=== PATIENT | male | born 1965 | race Caucasian/White ===

== ENCOUNTER 2021-02-14 14:29 | Inpatient (IN) | payer OTHER, SELFPAY ==
--- NOTE | ~2021-02-14 | CT_ITS ---
EXAMINATION: CTA LE LT EXAM DATE: 02/16/2021 11:02 INDICATION: Severe leg pain, erythema LLE . TECHNIQUE: Spiral CTA LE LT was performed following intravenous injection of 150 mL Omnipaque 350. Ma ximum intensity projection 3-D reconstructions of the left lower extremity arteries were created by ari hernandez technologist on dedicated workstation. The dose-length product (DLP) for this examination was 967 .35 mGy-cm. The exposure was tailored according to patient size (auto mA exposure control), and iter ative reconstruction (ASIR) was used as additional dose reduction technique. Correlation is made to CT abdomen pelvis 02/14/2021 FINDINGS: The left common iliac artery confirmed widely patent on CT scan 2 days earlier. Common fem oral artery widely patent. Minimal scattered SFA and popliteal arterial sclerosis without stenosis. T here is 3 vessel runoff to the left foot. There are left inguinal and pelvic lymph nodes with large fatty gabby, but enhancing peripheral parenc hyma. These are most likely reactive. Mild fat stranding in the left inguinal region also likely mild inflammation. There is edema along the calf and foot suspected, clinical correlation for possible ce llulitis. There is no abscess or pneumatosis, no evidence of necrotizing fasciitis. Incidental left-s ided scrotal left. IMPRESSION: 1. Minimal scattered arterial sclerosis with normal three-vessel runoff to foot. 2. Left calf and foot subcutaneous edema. Reactive left pelvic, inguinal lymphadenopathy. Reviewed, dictated and finalized at location A. IMPRESSION: 1. Minimal scattered arterial sclerosis with normal three-vessel runoff to travis t. 2. Left calf and foot subcutaneous edema. Reactive left pelvic, inguinal lymph adenopathy.
--- NOTE | ~2021-02-14 | US_ITS ---
EXAMINATION: US venous doppler LE EXAM DATE: 02/15/2021 13:13 INDICATION: Left leg swelling, redness. TECHNIQUE: Multiple grayscale, color flow and Doppler images of the lower extremity deep venous syste ms bilaterally were obtained and reviewed. There is no prior study for comparison. FINDINGS: Right side: The right common femoral, femoral and profunda veins demonstrate normal color flow, respi ratory variation, augmentation and compressibility. Compressibility, color flow confirmed within the right popliteal, posterior tibial, peroneal, and greater saphenous veins. Left side: The left common femoral, femoral and profunda veins demonstrate normal color flow, respira tory variation, augmentation and compressibility. Compressibility, color flow confirmed within the l eft popliteal, posterior tibial, peroneal, and greater saphenous veins. Left inguinal lymph node ravi suring 2 x 3 cm, with large fatty hilum likely reactive. IMPRESSION: 1. No lower extremity deep venous thrombosis bilaterally. Reviewed, dictated and finalized at location A.
--- NOTE | ~2021-02-14 | CT_ITS ---
EXAMINATION: CT abdomen pelvis w con DATE: 02/14/2021 16:37 INDICATION: Abdominal pain TECHNIQUE: Computed tomography (CT) of the abdomen and pelvis was performed with 100 mL Omnipaque-350 intravenous contrast. Automated exposure control and iterative reconstruction technique were employe d. The dose-length product was 1344.44 mGy-cm. COMPARISON: None FINDINGS: Mild dependent atelectasis in the bilateral lower lobes. Heart size is normal. Atherosclerotic denis ry artery calcification and/or stenting. No pericardial or pleural effusion. Liver, spleen, pancreas, left kidney and bilateral adrenal glands are normal. 2.2 cm right renal cyst. Very small region of m ild focal thickening of the gallbladder wall which measures up to 3 mm in thickness and extends over a 9 x 5 mm region. Bowels including the appendix are normal. Bladder is normal. No free intraperitone al gas or fluid. No pathologically enlarged abdominal or pelvic lymphadenopathy. Severe bilateral fac et osteoarthritis at L5-S1. Otherwise mild scattered degenerative skeletal changes. IMPRESSION: 1. No acute intra-abdominal/pelvic process. 2. Nonspecific small focal region of mild gallbladder wall thickening. This could represent focal reg ion of adenomyomatosis, sessile polyp, less likely malignancy or artifactual appearance resulting fro m a small pericholecystic vessel. Consider 3-6 month follow-up pre and postcontrast MRI. Reviewed, dictated and finalized at location A. IMPRESSION: 1. No acute intra-abdominal/pelvic process. 2. Nonspecific small focal region of mild gallbladder wall thickening. This cou ld represent focal region of adenomyomatosis, sessile polyp, less likely malign korey or artifactual appearance resulting from a small pericholecystic vessel. C onsider 3-6 month follow-up pre and postcontrast MRI.
[2021-02-14 14:33] VITALS: BP 151/75; PULSE 130; RESP 18; TEMP 36.9; O2SAT 94
[2021-02-14 14:56] LABS: Basophils Percent Auto 0.1 % (0.2-1.2); Hematocrit 42.4 % (42.0-52.0); Hemoglobin 15.2 g/dL (14.0-18.0); Immature Granulocyte Absolute 0.16 K/mm3 (0.00-0.031); Immature Granulocyte Percent A 0.7 % (0-0.5); Lymphocytes Absolute Auto 0.93 K/mm3 (0.9-3.2); Lymphocytes Percent Auto 4.1 % (18.3-44.2); Mean Corpuscular HGB Conc 35.8 g/dl (32-36); Mean Corpuscular Hemoglobin 31.3 pg (26-34); Mean Corpuscular Volume 87.2 fl (80-100); Mean Platelet Volume 9.7 fl (7.4-10.4); Monocytes Percent Auto 4.2 % (2.6-8.5); Neutrophils Absolute Auto 20.3 K/mm3 (1.3-6.7); Neutrophils Percent Auto 90.9 % (45.5-73.1); Platelet Count Result 233 k/mm3 (150-375); Red Blood Count 4.86 M/mm3 (4.6-6.20); Red Cell Distribution Width 12.7 % (11.5-14.5); White Blood Count 22.4 K/mm3 (4.5-10.0)
[2021-02-14 15:05] LABS: Anion Gap 15 mmol/L (8-16); Blood Urea Nitrogen 8 mg/dL (9-20); Calcium 9.7 mg/dL (8.4-10.2); Carbon Dioxide 22 mmol/L (22-30); Chloride 96 mmol/L (98-107); Estimated CRCL calculation 116 ml/min; Estimated Glomerular Filt Rate > 60; Glucose 335 mg/dL (75-110); Potassium 3.8 mmol/L (3.4-5.0); Sodium 133 mmol/L (137-145)
[2021-02-14 15:22] LABS: Add Urine Microscopic? YES; Appearance Urine Clear (Clear); Bilirubin Urine Negative (Negative); Blood Urine 1+ (Negative); Color Urine Yellow (Yellow); Glucose Urine UA 3+ mg/dL (Negative); Ketones Urine 2+ mg/dL (Negative); Leukocyte Esterase Ur Negative LEU/UL (Negative); Nitrate Urine Negative (Negative); Protein Urine 2+ mg/dL (Negative); RBC Urine 0-2 /hpf (0-2); Urobilinogen Urine Negative mg/dL (<2.0); WBC Urine 0-3 /hpf
[2021-02-14 15:27] LABS: Specific Grav Ur 1.035 (1.001-1.035)
[2021-02-14 15:54] VITALS: BP 164/76; PULSE 100; RESP 18; TEMP 36.7; O2SAT 99
--- NOTE | 2021-02-14 16:08 | ED.ABDPAIN ---
HPI - Abdominal Pain General Chief Complaint: Abdominal Pain Stated Complaint: l groin and back pain Time Seen by Provider: 02/14/21 16:07 History of Present Illness HPI narrative: Left groin pain for the past 3 weeks. Worsening in severity. Now radiating throughout the abdomen and associated with nausea and vomiting. This is a new symptom. No fever. No previous surgery. Related Data Home Medications Medication Instructions Recorded Confirmed Benadryl Allergy 50 mg HS 02/14/21 02/14/21 atorvastatin 80 mg PO DAILY 02/14/21 02/14/21 losartan 50 mg PO DAILY 02/14/21 02/14/21 metformin 500 mg PO BID 02/14/21 02/14/21 metoprolol tartrate 100 mg PO DAILY 02/14/21 02/14/21 Lantus Solostar U-100 Insulin 52 unit SUBCUT DAILY 02/15/21 02/15/21 Novolog Flexpen U-100 Insulin 32 unit SUBCUT BID 02/15/21 02/15/21 Victoza 2-Sha 1.8 mg SUBCUT DAILY 02/15/21 02/15/21 Allergies Allergy/AdvReac Type Severity Reaction Status Date / Time No Known Allergies Allergy Verified 02/14/21 18:47 Review of Systems Review of Systems: All systems reviewed & are unremarkable except as noted in HPI and below Constitutional: Constitutional: Denies fever(s) Eyes: Eyes: Reports no additional eye complaints Cardiovascular: Cardiovascular: Denies chest pain Respiratory: Respiratory: Denies dyspnea Gastrointestinal: Gastrointestinal: Reports abdominal pain, Denies diarrhea, Reports nausea and Reports vomiting Genitourinary: Genitourinary: Denies hematuria and Denies dysuria Neurologic: Reports dizziness PMFSH Past Medical History Medical History Coronary artery disease Hiccups Hyperlipidemia Hypertension Obstructive sleep apnea on CPAP Type 2 diabetes mellitus Surgical History Surgical History History of cardiac catheterization Stent x1. History of laparoscopic adjustable gastric banding With subsequent removal secondary to erosion. Family History Family History Father Family history of heart disease in male family member before age 55 Mother Chronic obstructive pulmonary disease Social History Social History Social History: The patient is and lives with his in [place]. He has 3 children. 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 Former smoker, quit about 23 years ago. He drinks 2 beers a week. No illicit substance use. He designates his , Smita, as his surrogate decision maker and he wishes to be a full code. Smoking status: Former smoker Alcohol intake: current Drinks per week: 2 Substance use: current Substance use type: marijuana Last use: 02/12/21 Spiritual care concerns: No Exam Const: General: no acute distress, alert and ill appearing Orientation/consciousness: patient oriented x3 HENMT: Head: normal to inspection Resp: Effort & Inspection: normal respiratory effort Auscultation: clear to auscultation bilaterally Cardio: Rate: tachycardic Rhythm: regular rhythm Heart sounds: no murmurs GI: Inspection: non-distended GI Palp: Yes Soft to palpation and Yes Tenderness to palpation present (GI) (diffuse, most severe over left inguinal ligamant) Skin: Other: Erythema, induration, swelling of left lower leg Neuro: General: patient oriented x3, No moves all extremities and CN's II-XI intact bilaterally Gait exam (Neuro): Normal gait present Extrem: General: edema left Course Vital Signs Vital signs: Vital Signs Temperature 36.9 C 02/14/21 14:33 Pulse Rate 130 H 02/14/21 14:33 Respiratory Rate 18 02/14/21 14:33 Blood Pressure 151/75 H 02/14/21 14:33 Pulse Oximetry 94 02/14/21 14:33 Temperature 36.6 C 02/19/21 14:00 Pulse Rate 95 02/19/21 16:00 Respiratory Rate 18 02/19/21 14:00 Blood Pressure 107
[2021-02-14] MEDS: SODIUM CHLORIDE 0.9% IV 1,000 ML 999 ML IV CONT ×2 (16:09→21:31)
[2021-02-14] MEDS: MORPHINE SULFATE (*CRX) 4 MG/ML INJ IV PUSH (16:50)
[2021-02-14 17:16] LABS: Lactic Acid Reflex 2.1 mmol/L (0.7-2.1)
[2021-02-14 17:17] LABS: Alanine Aminotransferase 19 U/L (4-50); Albumin Level 4.5 g/dL (3.5-5.1); Alkaline Phosphatase 75 U/L (38-126); Aspartate Amino Transferase 32 U/L (17-59); Bilirubin,Total 0.8 mg/dL (0.2-1.3); Lipase 21 U/L (23-300)
[2021-02-14] MEDS: LACTATED RINGERS 1,000 ML 125 ML IV CONT (18:40)
[2021-02-14 18:47] VITALS: BP 135/95; PULSE 123; RESP 18; TEMP 37.6; O2SAT 97
[2021-02-14 18:55] VITALS: BP 135/95; PULSE 123; TEMP 37.6; O2SAT 97
--- NOTE | 2021-02-14 18:55 | PC.NURSE ---
This patient, Roland Vergara, was admitted to [facility] Surg Room 314-01. Patient/family oriented to hospital policies and general routines including ID bracelet, bed and alarms, visiting hours, pain management, procedures, bathroom and other care routines, personal items, smoking policy, room service/diet, and visiting hours. Information on how to activate the Rapid Response Team has been discussed. Patient/Family are encouraged to report perceived risks to care and to ask questions if they do not understand what they are told or what they should do.
--- NOTE | 2021-02-14 20:00 | PM.IMHP ---
H&P: HPI History of Present Illness Date/Time: 02/14/21 20:00 Chief Complaint: Left groin pain. Narrative: This is a 55-year-old male with history of coronary artery disease status post stent x1, type 2 diabetes mellitus, hypertension, hyperlipidemia, obstructive sleep apnea presented to the emergency department earlier today via private vehicle from home for evaluation of left groin pain. For nearly 3 weeks he has had an aching discomfort in the left groin that has not been significant enough for him to require analgesics. Yesterday he developed systemic symptoms including subjective fever, nausea, and vomiting and when he was not better today he decided to come in as he thought perhaps he had a kidney stone. A CT of the abdomen and pelvis was was essentially unremarkable aside from an area of fat stranding around a left inguinal lymph node. Subsequently it was discovered that he had a large erythematous patch on his left lower leg that has been present for about a week although the patient never really paid much attention. He has no history of cellulitis and no known history of MRSA. No dysuria or hematuria. He denies flank pain and abdominal pain. Last episode of emesis was approximately 3 hours ago. He has not had diarrhea. He has not noticed any significant swelling in the leg. No recent travel or history of venous thromboembolism. Review of Systems Review of Systems: Narrative: Twelve systems were reviewed with pertinent positives and negatives as per HPI. No recent cold or flu symptoms. He denies exposure to those positive for COVID-19. No chest pain or shortness of breath. On occasion he will feel his heart racing or beating irregularly. He has no history of cardiac dysrhythmia. No syncope or near syncope. He denies pleuritic pain. No orthopnea, PND, or lower extremity edema. He believes his diabetes is well controlled. No blurry vision, polydipsia, or polyuria. Compliant with CPAP at nighttime. Except as documented, all other systems were reviewed and are negative. [facility] Past Medical History Medical History (Updated 02/14/21 @ 20:58 by Keyla Gottlieb PA-C) Coronary artery disease Hyperlipidemia Hypertension Obstructive sleep apnea on CPAP Type 2 diabetes mellitus Surgical History Surgical History (Updated 02/14/21 @ 20:46 by Keyla Gottlieb PA-C) History of cardiac catheterization Stent x1. History of laparoscopic adjustable gastric banding With subsequent removal secondary to erosion. Family History Family History (Updated 02/14/21 @ 20:47 by Keyla Gottlieb PA-C) Father Family history of heart disease in male family member before age 55 Mother Chronic obstructive pulmonary disease Social History Social History (Updated 02/14/21 @ 20:49 by Keyla Gottlieb PA-C) Social History: The patient is and lives with his in [place]. He has 3 children. 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 Former smoker, quit about 23 years ago. He drinks 2 beers a week. No illicit substance use. He designates his , Smita, as his surrogate decision maker and he wishes to be a full code. Meds Home Medications and Allergies Home Medications Medication Instructions Recorded Confirmed Type Benadryl Allergy 50 mg HS 02/14/21 02/14/21 History atorvastatin 80 mg PO DAILY 02/14/21 02/14/21 History losartan 50 mg PO DAILY 02/14/21 02/14/21 History metformin 500 mg PO BID 02/14/21 02/14/21 History metoprolol tartrate 100 mg PO DAILY 02/14/21 02/14/21 History Allergies Allergy/AdvReac Type Severity Reaction Status Date / Time No Known Allergies Allergy Verified 02/14/21 18:47 Vital Signs Vital Signs - 24 hr 02/14/21 14:33 02/14/21 15:54 02/14/21 18:47 Temperature 98.5 F 98.0 F 99.6 F Pulse Rate 130 H 100 123 H Respiratory Rate 18 18 18 Blood Pressure 151/75 H 164/76 H 135/95 H Pulse Oximetry 94 99 97 02/14/21 18:55 Temperature 99.6 F Pulse
[2021-02-14 20:05] LABS: Reflex Lactic Acid Yes or No Add Lactic
--- NOTE | 2021-02-14 20:38 | ECG_ITS ---
Measurements Intervals [place] Rate: 107 P: 48 ID: [id number] QRS: 18 QRSD: 94 T: 83 QT: 354 QTc: 474 Interpretive Statements SINUS TACHYCARDIA BORDERLINE ST-T WAVE ABNORMALITY- HIGH LATERAL LEADS ABNORMAL ECG Electronically Signed On 02-15-2021 7:23:50 CDT by Gomez Barbosa D.O.
[2021-02-14 21:20] VITALS: BMI 38.7
[2021-02-14 21:37] LABS: Lactic Acid 1.8 mmol/L (0.7-2.1)
[2021-02-14 21:42] LABS: Hemoglobin A1C 9.9 % (<5.7)
[2021-02-14 21:47] LABS: Glucose Point of Care 320 mg/dl (65-105)
[2021-02-14 21:50] LABS: Anion Gap 14 mmol/L (8-16); Blood Urea Nitrogen 8 mg/dL (9-20); Calcium 9.5 mg/dL (8.4-10.2); Carbon Dioxide 25 mmol/L (22-30); Chloride 94 mmol/L (98-107); Estimated CRCL calculation 115 ml/min; Estimated Glomerular Filt Rate > 60; Glucose 323 mg/dL (75-110); Potassium 3.7 mmol/L (3.4-5.0); Sodium 133 mmol/L (137-145)
[2021-02-14 21:52] LABS: CRP > 9.0 mg/dL (<1.0); Magnesium 1.9 mg/dL (1.6-2.3)
[2021-02-14 21:54] LABS: Beta-Hydroxybutyrate/Acetoacetate 0.91 mmol/L (0.02-0.27)
[2021-02-14 22:00] VITALS: BP 144/82; PULSE 114; RESP 20; TEMP 37.2; O2SAT 96
[2021-02-14 22:06] VITALS: PULSE 114
[2021-02-14 22:53] LABS: Thyroid Stimulating Hormone Reflex 0.963 uIU/mL (0.465-4.68)
[2021-02-14] MEDS: INSULIN ASPART (*BKC) 100 UNITS/ML SUB-Q (22:56)
[2021-02-14] MEDS: diphenhydrAMINE HCl CAP 25 MG CAPSULE 50 MG BY MOUTH (22:58)
[2021-02-15] VITALS (11 sets, daily range): BP systolic 122–134; BP diastolic 64–75; PULSE 99–115; RESP 18–20; TEMP 36.9–37.1; O2SAT 96–99
[2021-02-15] MEDS: LACTATED RINGERS 1,000 ML 125 ML IV CONT ×2 (05:50→10:53)
[2021-02-15 06:40] LABS: Hematocrit 35.8 % (42.0-52.0); Hemoglobin 12.7 g/dL (14.0-18.0); Mean Corpuscular HGB Conc 35.5 g/dl (32-36); Mean Corpuscular Hemoglobin 30.8 pg (26-34); Mean Corpuscular Volume 86.9 fl (80-100); Mean Platelet Volume 9.6 fl (7.4-10.4); Platelet Count Result 170 k/mm3 (150-375); Red Blood Count 4.12 M/mm3 (4.6-6.20); Red Cell Distribution Width 12.7 % (11.5-14.5); White Blood Count 14.7 K/mm3 (4.5-10.0)
[2021-02-15 08:22] LABS: Glucose Point of Care 307 mg/dl (65-105)
[2021-02-15] MEDS: INSULIN ASPART (*BKC) 100 UNITS/ML SUB-Q ×3 (08:27→18:51)
[2021-02-15] MEDS: ENOXAPARIN 40 MG/0.4 ML SYRINGE SUB-Q (08:28)
[2021-02-15 09:24] LABS: Anion Gap 9 mmol/L (8-16); Blood Urea Nitrogen 8 mg/dL (9-20); Calcium 8.5 mg/dL (8.4-10.2); Carbon Dioxide 24 mmol/L (22-30); Chloride 99 mmol/L (98-107); Estimated CRCL calculation 132 ml/min; Estimated Glomerular Filt Rate > 60; Glucose 240 mg/dL (75-110); Potassium 3.7 mmol/L (3.4-5.0); Sodium 132 mmol/L (137-145)
[2021-02-15] MEDS: ATORVASTATIN 40 MG TABLET 80 MG PO (10:42)
[2021-02-15] MEDS: LOSARTAN POTASSIUM 50 MG TABLET PO (10:42)
[2021-02-15 12:25] LABS: Glucose Point of Care 325 mg/dl (65-105)
--- NOTE | 2021-02-15 12:35 | PM.IMPN ---
Progress Note: A&P Assessment and Plan (1) Sepsis: Code(s): A41.9 - Sepsis, unspecified organism Status: Acute Assessment and Plan: The patient presents today with left groin pain, found to have inflammation around the left inguinal lymph node, likely reactive due to the discovery of left lower extremity cellulitis. He has been started on imipenem and vancomycin per antibiotic stewardship recommendations. He technically meets criteria for sepsis with leukocytosis and tachycardia in the setting of infection however qSOFA is 0. Lactic acid level is obtained and is within normal limits. Blood cultures have been ordered and pending at this time. (2) Left leg cellulitis: Code(s): L03.116 - Cellulitis of left lower limb Status: Acute Assessment and Plan: IV antibiotics, also with left leg swelling will get Venous Dopplers to rule out DVT. (3) Dehydration: Code(s): E86.0 - Dehydration Status: Acute Assessment and Plan: He has been started on IV fluids as he appeared dehydrated on exam, but looks improved today. Continue light IV fluid hydration. (4) Type 2 diabetes mellitus with hyperglycemia: Code(s): E11.65 - Type 2 diabetes mellitus with hyperglycemia Status: Acute Assessment and Plan: Patient is on Lantus, Novolog, Metformin and Victoza with HgbA1c 9.9% which he states is down from 11 where he was 1 month ago. He is working on diet changes and weight loss. Hold Metformin, adjust insulin to prevent hypoglycemia while hospitalized on DM diet. Continue monitoring Accu-Cheks. Continue sliding scale insulin. Hypoglycemic protocol. (5) Hypertension: Code(s): I10 - Essential (primary) hypertension Status: Acute Assessment and Plan: Blood pressures were reviewed, this morning 134/71.Continue monitoring BP. (6) Hyperlipidemia: Code(s): E78.5 - Hyperlipidemia, unspecified Status: Acute Assessment and Plan: Continue statin. (7) Obstructive sleep apnea on CPAP: Code(s): G47.33 - Obstructive sleep apnea (adult) (pediatric); Z99.89 - Dependence on other enabling machines and devices Status: Acute Assessment and Plan: Patient may use CPAP from home. Additional Plan Time Spent With Patient Time with patient: 25 - 35 minutes Subjective Date/time seen: 02/15/21 12:35 Interval history: Date of Service 02/15/21: The patient still reports some pain to his left groin, but states its improved since arrival. He has worse pain with trying to get out of bed and with walking around. This has been going on for 1-2 months. He has not been very active because of it. He reported some left lower extremity swelling, then did not notice the Erythema to his leg until just prior to arrival. He does report some calf pain. Denies any more fevers, chills, chest pain, SOB, cough, nausea ,vomiting, abdominal pain, or any other symptoms at this time. Review of Systems Review of Systems: All systems reviewed & are unremarkable except as noted in HPI and below Exam Narrative: Exam Narrative: General: 55-year-old man laying flat in bed with CPAP machine on resting. Appears comfortable. In no acute distress. Skin: See Lower extremities. No jaundice or cyanosis. Good skin turgor. Neck: Full range of motion. Supple. Respiratory: Lungs are clear to auscultation bilaterally. No wheezing, rales or rhonchi. No bony chest wall tenderness. Cardiovascular: The heart has a regular rate and rhythm without murmur. Lower extremities: Slight left lower extremity edema, nonpitting. Blanchable erythema noted to left lower extremity, along with some petechial erythema from upper gómez, to his ankle. Calf pain to palpation left greater than right. No lower extremity edema on right. Distal pulses are easily palpated. No calf tenderness to palpation. Gastrointestinal: The abdomen is soft, nontender and
[2021-02-15] MEDS: METOPROLOL TARTRATE 50 MG TAB 100 MG PO (13:44)
--- NOTE | 2021-02-15 14:14 | PHAR ---
The patient's home meds of Novolog Flexpen, Victoza pen, and Lantus solostar pen all sent to pharmacy to verify. Patient to use Novolog and [facility] supplies so that med scanning can be done. The Victoza is not ordered.
[2021-02-15 17:34] LABS: Glucose Point of Care 260 mg/dl (65-105)
[2021-02-15] MEDS: INSULIN ASPART (*BKC) 100 UNITS/ML 20 UNITS SUB-Q (18:52)
[2021-02-15] MEDS: MORPHINE SULFATE (*CRX) 4 MG/ML INJ IV PUSH (19:08)
[2021-02-15] MEDS: INSULIN GLARGINE (*BKC) 100 UNITS/ML 42 UNITS SUB-Q (21:09)
[2021-02-15] MEDS: diphenhydrAMINE HCl CAP 25 MG CAPSULE 50 MG BY MOUTH (21:15)
[2021-02-15 21:31] LABS: Glucose Point of Care 296 mg/dl (65-105)
[2021-02-16] VITALS (10 sets, daily range): BP systolic 119–131; BP diastolic 64–74; PULSE 88–110; RESP 16–20; TEMP 36.3–36.9; O2SAT 97
[2021-02-16] MEDS: LACTATED RINGERS 1,000 ML 75 ML IV CONT (04:33)
[2021-02-16] MEDS: MORPHINE SULFATE (*CRX) 4 MG/ML INJ IV PUSH ×6 (04:38→23:19)
[2021-02-16 06:11] LABS: Basophils Percent Auto 0.3 % (0.2-1.2); Eosinophils Absolute Auto 0.1 K/mm3 (0-0.3); Eosinophils Percent Auto 0.4 % (0-4.4); Hematocrit 34.8 % (42.0-52.0); Hemoglobin 11.9 g/dL (14.0-18.0); Immature Granulocyte Absolute 0.05 K/mm3 (0.00-0.031); Immature Granulocyte Percent A 0.4 % (0-0.5); Lymphocytes Absolute Auto 1.46 K/mm3 (0.9-3.2); Lymphocytes Percent Auto 13.1 % (18.3-44.2); Mean Corpuscular HGB Conc 34.2 g/dl (32-36); Mean Corpuscular Hemoglobin 30.7 pg (26-34); Mean Corpuscular Volume 89.9 fl (80-100); Mean Platelet Volume 9.5 fl (7.4-10.4); Monocytes Absolute Auto 0.8 K/mm3 (0.1-0.6); Neutrophils Absolute Auto 8.8 K/mm3 (1.3-6.7); Neutrophils Percent Auto 78.8 % (45.5-73.1); Platelet Count Result 160 k/mm3 (150-375); Red Blood Count 3.87 M/mm3 (4.6-6.20); Red Cell Distribution Width 12.7 % (11.5-14.5); White Blood Count 11.2 K/mm3 (4.5-10.0)
[2021-02-16 06:35] LABS: Anion Gap 8 mmol/L (8-16); Blood Urea Nitrogen 8 mg/dL (9-20); Calcium 8.3 mg/dL (8.4-10.2); Carbon Dioxide 27 mmol/L (22-30); Chloride 100 mmol/L (98-107); Estimated CRCL calculation 132 ml/min; Estimated Glomerular Filt Rate > 60; Glucose 130 mg/dL (75-110); Potassium 3.3 mmol/L (3.4-5.0); Sodium 135 mmol/L (137-145)
[2021-02-16 06:42] LABS: CRP 21.5 mg/dL (<1.0)
[2021-02-16 06:51] LABS: Vancomycin Trough 6.4 ug/mL (10.0-20.0)
[2021-02-16] MEDS: POTASSIUM CHLORIDE 20 MEQ TABLET 40 MEQ PO (06:51)
[2021-02-16 07:19] LABS: Magnesium 2.1 mg/dL (1.6-2.3)
[2021-02-16 08:08] LABS: Glucose Point of Care 206 mg/dl (65-105)
[2021-02-16] MEDS: INSULIN ASPART (*BKC) 100 UNITS/ML SUB-Q ×3 (08:59→17:14)
[2021-02-16] MEDS: INSULIN ASPART (*BKC) 100 UNITS/ML 20 UNITS SUB-Q ×2 (09:00→17:14)
[2021-02-16] MEDS: ENOXAPARIN 40 MG/0.4 ML SYRINGE SUB-Q (09:00)
[2021-02-16] MEDS: ATORVASTATIN 40 MG TABLET 80 MG PO (09:00)
[2021-02-16] MEDS: METOPROLOL TARTRATE 50 MG TAB 100 MG PO (09:01)
[2021-02-16] MEDS: LOSARTAN POTASSIUM 50 MG TABLET PO (09:01)
--- NOTE | 2021-02-16 10:09 | PM.IMPN ---
Progress Note: A&P Assessment and Plan (1) Left leg pain: Code(s): M79.605 - Pain in left leg Status: Acute Assessment and Plan: Reporting increased left leg pain since last evening. Will obtain CTA Left leg to rule out nec fas, abscess, clot or any other acute abnormality. (2) Sepsis: Code(s): A41.9 - Sepsis, unspecified organism Status: Acute Assessment and Plan: The patient presents today with left groin pain, found to have inflammation around the left inguinal lymph node, likely reactive due to the discovery of left lower extremity cellulitis. He has been started on imipenem and vancomycin per antibiotic stewardship recommendations. He meets criteria for sepsis on arrival with leukocytosis and tachycardia in the setting of infection however qSOFA is 0. Lactic acid level is obtained and is within normal limits. Blood cultures show no growth at that time (3) Left leg cellulitis: Code(s): L03.116 - Cellulitis of left lower limb Status: Acute Assessment and Plan: IV antibiotics for cellulitis. Venous Dopplers negative. Continue IV antibiotics and monitoring (4) Dehydration: Code(s): E86.0 - Dehydration Status: Acute Assessment and Plan: He has been started on IV fluids as he appeared dehydrated on exam, but looks improved today. Euvolemic. D/c IV fluids. (5) Type 2 diabetes mellitus with hyperglycemia: Code(s): E11.65 - Type 2 diabetes mellitus with hyperglycemia Status: Acute Assessment and Plan: Patient is on Lantus, Novolog, Metformin and Victoza with HgbA1c 9.9% which he states is down from 11 where he was 1 month ago. He is working on diet changes and weight loss. Hold Metformin, adjust insulin to prevent hypoglycemia while hospitalized on DM diet. Continue monitoring Accu-Cheks. Continue sliding scale insulin. Hypoglycemic protocol. (6) Hypertension: Code(s): I10 - Essential (primary) hypertension Status: Acute Assessment and Plan: Blood pressures were reviewed, this morning 119/64.Continue monitoring BP. (7) Hyperlipidemia: Code(s): E78.5 - Hyperlipidemia, unspecified Status: Acute Assessment and Plan: Continue statin. (8) Obstructive sleep apnea on CPAP: Code(s): G47.33 - Obstructive sleep apnea (adult) (pediatric); Z99.89 - Dependence on other enabling machines and devices Status: Acute Assessment and Plan: Patient may use CPAP from home. Additional Plan Time Spent With Patient Time with patient: 25 - 35 minutes Subjective Date/time seen: 02/16/21 10:09 Interval history: Date of Service 02/16/21: The patients left groin pain has resolved. He reports worsening left leg pain, redness. His left lower leg is so tender than even the blanket sitting on his leg is painful. Still reports some swelling. Denies any more fevers, chills, chest pain, SOB, cough, nausea ,vomiting, abdominal pain, or any other symptoms at this time. Review of Systems Review of Systems: All systems reviewed & are unremarkable except as noted in HPI and below Exam Narrative: Exam Narrative: General: 55-year-old man laying flat in bed with CPAP machine on resting. Appears comfortable. In no acute distress. Skin: See Lower extremities. No jaundice or cyanosis. Good skin turgor. Neck: Full range of motion. Supple. Respiratory: Lungs are clear to auscultation bilaterally. No wheezing, rales or rhonchi. No bony chest wall tenderness. Cardiovascular: The heart has a regular rate and rhythm without murmur. Lower extremities:Increased blanchable erythema to left lower extremity, along with some petechial erythema from upper gómez, to his ankle. Nonpitting swelling. TTP to left lower extremity. No lower extremity edema on right. Distal pulses are easily palpated. No calf tenderness to palpation. Gastrointestinal: The abdomen is soft, n
[2021-02-16 12:39] LABS: Glucose Point of Care 218 mg/dl (65-105)
[2021-02-16] MEDS: ACETAMINOPHEN 325 MG TABLET 650 MG PO (14:12)
[2021-02-16] MEDS: HYDROcodone/acetaminophen (*CRX) 5-325 MG TABLET 1 TAB PO ×2 (15:54→20:51)
[2021-02-16 17:11] LABS: Glucose Point of Care 232 mg/dl (65-105)
[2021-02-16] MEDS: diphenhydrAMINE HCl CAP 25 MG CAPSULE 50 MG BY MOUTH (22:02)
[2021-02-16] MEDS: INSULIN GLARGINE (*BKC) 100 UNITS/ML 42 UNITS SUB-Q (22:02)
[2021-02-16 22:15] LABS: Glucose Point of Care 207 mg/dl (65-105)
[2021-02-17] VITALS (11 sets, daily range): BP systolic 106–127; BP diastolic 67–76; PULSE 82–110; RESP 16–20; TEMP 36.2–36.9; O2SAT 96–100
[2021-02-17] MEDS: MORPHINE SULFATE (*CRX) 4 MG/ML INJ IV PUSH ×3 (03:37→09:09)
[2021-02-17] MEDS: HYDROcodone/acetaminophen (*CRX) 5-325 MG TABLET 1 TAB PO (06:06)
[2021-02-17 06:34] LABS: Basophils Absolute Auto 0.1 K/mm3 (0.0-0.1); Basophils Percent Auto 0.4 % (0.2-1.2); Eosinophils Absolute Auto 0.1 K/mm3 (0-0.3); Eosinophils Percent Auto 0.9 % (0-4.4); Hematocrit 35.4 % (42.0-52.0); Hemoglobin 12.3 g/dL (14.0-18.0); Immature Granulocyte Absolute 0.08 K/mm3 (0.00-0.031); Immature Granulocyte Percent A 0.6 % (0-0.5); Lymphocytes Absolute Auto 1.95 K/mm3 (0.9-3.2); Lymphocytes Percent Auto 15.5 % (18.3-44.2); Mean Corpuscular HGB Conc 34.7 g/dl (32-36); Mean Corpuscular Hemoglobin 30.1 pg (26-34); Mean Corpuscular Volume 86.6 fl (80-100); Mean Platelet Volume 9.7 fl (7.4-10.4); Monocytes Percent Auto 7.8 % (2.6-8.5); Neutrophils Absolute Auto 9.4 K/mm3 (1.3-6.7); Neutrophils Percent Auto 74.8 % (45.5-73.1); Platelet Count Result 201 k/mm3 (150-375); Red Blood Count 4.09 M/mm3 (4.6-6.20); Red Cell Distribution Width 12.6 % (11.5-14.5); White Blood Count 12.6 K/mm3 (4.5-10.0)
[2021-02-17 06:59] LABS: Anion Gap 8 mmol/L (8-16); Blood Urea Nitrogen 7 mg/dL (9-20); Calcium 8.5 mg/dL (8.4-10.2); Carbon Dioxide 28 mmol/L (22-30); Chloride 99 mmol/L (98-107); Estimated CRCL calculation 132 ml/min; Estimated Glomerular Filt Rate > 60; Glucose 175 mg/dL (75-110); Potassium 3.5 mmol/L (3.4-5.0); Sodium 135 mmol/L (137-145)
[2021-02-17 07:22] LABS: Vancomycin Trough 10.5 ug/mL (10.0-20.0)
[2021-02-17 08:15] LABS: Glucose Point of Care 219 mg/dl (65-105)
[2021-02-17] MEDS: INSULIN ASPART (*BKC) 100 UNITS/ML 20 UNITS SUB-Q (08:25)
[2021-02-17] MEDS: METOPROLOL TARTRATE 50 MG TAB 100 MG PO ×2 (08:28→21:04)
[2021-02-17] MEDS: ENOXAPARIN 40 MG/0.4 ML SYRINGE SUB-Q (08:29)
[2021-02-17] MEDS: LOSARTAN POTASSIUM 50 MG TABLET PO (08:29)
[2021-02-17] MEDS: ATORVASTATIN 40 MG TABLET 80 MG PO (08:29)
--- NOTE | 2021-02-17 09:41 | PM.IMPN ---
Progress Note: A&P Assessment and Plan (1) Left leg pain: Code(s): M79.605 - Pain in left leg Status: Acute Assessment and Plan: Improved leg pains today. Venous Dopplers negative. CTA Left leg showed Minimal scattered arterial sclerosis with normal three-vessel runoff to foot. Left calf and foot subcutaneous edema. Reactive left pelvic, inguinal lymphadenopathy. Plan is to keep left leg elevated to decrease swelling, which I believe is what is causing most of the pain. He does report sharp shooting pains, will start Gabapentin 100 mg TID. PRN medications for pain- Tylenol, Tramadol vs Morphine IV Appears better today. Continue monitoring (2) Sepsis: Code(s): A41.9 - Sepsis, unspecified organism Status: Acute Assessment and Plan: The patient presented with left groin pain, found to have inflammation around the left inguinal lymph node, likely reactive due to the discovery of left lower extremity cellulitis. He has been started on imipenem and vancomycin per antibiotic stewardship recommendations. He meets criteria for sepsis on arrival with leukocytosis and tachycardia in the setting of infection however qSOFA is 0. Lactic acid level is obtained and is within normal limits. Vitals stable. No longer septic Blood cultures show no growth at that time Continue monitoring (3) Left leg cellulitis: Code(s): L03.116 - Cellulitis of left lower limb Status: Acute Assessment and Plan: IV antibiotics for cellulitis. Leukocytosis improving, CRP improving slowly. Leg overall appears stable, believe most of the infections blanchable erythems is being covered by petechial erythema that is nonblanchable. Otherwise based on the patients symptoms over all it seems to be improving slowly. Continue IV antibiotics and monitoring (4) Dehydration: Code(s): E86.0 - Dehydration Status: Acute Assessment and Plan: He has been started on IV fluids as he appeared dehydrated on exam, but looks improved today. Euvolemic. D/c IV fluids. (5) Type 2 diabetes mellitus with hyperglycemia: Code(s): E11.65 - Type 2 diabetes mellitus with hyperglycemia Status: Acute Assessment and Plan: Patient is on Lantus, Novolog, Metformin and Victoza with HgbA1c 9.9% which he states is down from 11 where he was 1 month ago. He is working on diet changes and weight loss. Hold Metformin, adjust insulin to prevent hypoglycemia while hospitalized on DM diet. Glucoses in the 175-200's. Continue monitoring Accu-Cheks. Continue sliding scale insulin. Hypoglycemic protocol. (6) Hypertension: Code(s): I10 - Essential (primary) hypertension Status: Acute Assessment and Plan: Blood pressures were reviewed, this morning 127/75. Stable.Continue monitoring BP. (7) Hyperlipidemia: Code(s): E78.5 - Hyperlipidemia, unspecified Status: Acute Assessment and Plan: Continue statin. (8) Obstructive sleep apnea on CPAP: Code(s): G47.33 - Obstructive sleep apnea (adult) (pediatric); Z99.89 - Dependence on other enabling machines and devices Status: Acute Assessment and Plan: Patient may use CPAP from home. Additional Plan Time Spent With Patient Time with patient: 25 - 35 minutes Subjective Date/time seen: 02/17/21 09:41 Interval history: Date of Service 02/17/21: The patients left groin pain has resolved. He states he overall feels a lot better than yesterday. Feels better than he has in a while. Still having severe nerve pains shooting from his ankle up his leg intermittently, otherwise his calf pains have resolved. Denies any more fevers, chills, chest pain, SOB, cough, nausea ,vomiting, abdominal pain, or any other symptoms at this time. Review of Systems Review of Systems: All systems reviewed & are unremarkable except as noted in HPI and below Exam Narrative:
[2021-02-17] MEDS: ACETAMINOPHEN 325 MG TABLET 650 MG PO ×2 (11:02→17:43)
[2021-02-17] MEDS: traMADol HCL (*CRX) 50 MG TABLET PO ×3 (11:02→23:32)
[2021-02-17] MEDS: PSYLLIUM POWDER PACKET 1 PACKET PO (11:02)
[2021-02-17] MEDS: GABAPENTIN 100 MG CAPSULE PO ×3 (11:02→16:32)
[2021-02-17] MEDS: DOCUSATE SODIUM 100 MG CAPSULE PO ×2 (11:02→21:07)
[2021-02-17 11:32] LABS: Glucose Point of Care 184 mg/dl (65-105)
[2021-02-17 11:33] LABS: Glucose Point of Care 216 mg/dl (65-105)
[2021-02-17] MEDS: INSULIN ASPART (*BKC) 100 UNITS/ML SUB-Q ×2 (12:19→17:45)
[2021-02-17] MEDS: MORPHINE SULFATE (*CRX) 4 MG/ML INJ 2 MG IV PUSH ×2 (12:19→15:17)
[2021-02-17 16:59] LABS: Glucose Point of Care 250 mg/dl (65-105)
[2021-02-17] MEDS: INSULIN ASPART (*BKC) 100 UNITS/ML 24 UNITS SUB-Q (17:46)
[2021-02-17] MEDS: INSULIN GLARGINE (*BKC) 100 UNITS/ML 47 UNITS SUB-Q (21:00)
[2021-02-17] MEDS: diphenhydrAMINE HCl CAP 25 MG CAPSULE 50 MG BY MOUTH (21:30)
[2021-02-18] VITALS (12 sets, daily range): BP systolic 135–143; BP diastolic 64–72; PULSE 74–109; RESP 18–22; TEMP 35.9–37.3; O2SAT 97–99
--- NOTE | 2021-02-18 | ECHO_ITS ---
Patient Info Name: Roland Vergara Age: 55 years : 1965 Gender: Male Ht: 65 in Wt: 232 lbs BSA: 2.25 m2 HR: 105 bpm BP: 135 / 64 mmHg Technical Quality: Fair Exam Date: 02/18/2021 1:20 PM Exam Location: [facility] Patient Status: Inpatient Admit Date: 02/14/2021 Staff Ordering Physician: Derrick Silver Ditch Worker: Radha Valles RDCS Attending Provider: Jenna Bustos PA-C Referring Physician: Nadeem MUSE; Exam Type: CA echo dop color flow w con Study Info Indications R60.9 - Edema, unspecified Complete two-dimensional, color flow and Doppler transthoracic echocardiogram is performed with contrast to opacify the left ventricle and to improve the deliniation of the left ventricle endocardial borders. Contrast/Agitated Saline Contrast/Ag. Saline: Definity Amount: 2.00 ml Administered By: Vitaliy Cordova RN Existing IV Access: Yes IV Access Condition: patent with no signs of infiltration Summary 1. Left ventricular chamber dimension is normal. 2. Left ventricular ejection fraction is normal, estimated at 6065 %. 3. The mitral valve has thickened leaflets. 4. There is trace mitral valve regurgitation. 5. There is trace tricuspid valve regurgitation. 6. Mild pulmonary HTN (PASP 39 mmHg). 7. Grade I diastolic dysfunction of the left ventricle (impaired relaxation pattern). 8. There is trace aortic valve regurgitation. Left Ventricle Left ventricular chamber dimension is normal. Left ventricular ejection fraction is normal, estimated at 6065 %. Grade I diastolic dysfunction of the left ventricle (impaired relaxation pattern). Right Ventricle Right ventricle Empty are normal. Left Atria Left atrial chamber dimension is normal. Right Atria Right atrial chamber dimension is normal. Aortic Valve Aortic valve is not well visualized. There is trace aortic valve regurgitation. Mitral Valve The mitral valve has thickened leaflets. There is trace mitral valve regurgitation. Tricuspid Valve The tricuspid valve leaflets are normal. There is trace tricuspid valve regurgitation. Mild pulmonary HTN (PASP 39 mmHg). Pericardium/Pleural Pericardium is normal in appearance with no evidence for significant pericardial effusion. Report Signatures
[2021-02-18 03:00] LABS: Glucose Point of Care 206 mg/dl (65-105)
[2021-02-18 07:25] LABS: Glucose Point of Care 172 mg/dl (65-105)
[2021-02-18 07:44] LABS: Basophils Percent Auto 0.3 % (0.2-1.2); Eosinophils Absolute Auto 0.2 K/mm3 (0-0.3); Eosinophils Percent Auto 1.2 % (0-4.4); Hematocrit 34.6 % (42.0-52.0); Hemoglobin 12.1 g/dL (14.0-18.0); Immature Granulocyte Absolute 0.15 K/mm3 (0.00-0.031); Immature Granulocyte Percent A 1.2 % (0-0.5); Lymphocytes Absolute Auto 1.78 K/mm3 (0.9-3.2); Lymphocytes Percent Auto 14.3 % (18.3-44.2); Mean Corpuscular Hemoglobin 30.8 pg (26-34); Mean Platelet Volume 9.3 fl (7.4-10.4); Monocytes Absolute Auto 0.7 K/mm3 (0.1-0.6); Monocytes Percent Auto 5.7 % (2.6-8.5); Neutrophils Absolute Auto 9.6 K/mm3 (1.3-6.7); Neutrophils Percent Auto 77.3 % (45.5-73.1); Platelet Count Result 214 k/mm3 (150-375); Red Blood Count 3.93 M/mm3 (4.6-6.20); Red Cell Distribution Width 12.5 % (11.5-14.5); White Blood Count 12.5 K/mm3 (4.5-10.0)
[2021-02-18 08:04] LABS: Anion Gap 9 mmol/L (8-16); Blood Urea Nitrogen 7 mg/dL (9-20); Calcium 8.8 mg/dL (8.4-10.2); Carbon Dioxide 29 mmol/L (22-30); Chloride 98 mmol/L (98-107); Estimated CRCL calculation 132 ml/min; Estimated Glomerular Filt Rate > 60; Glucose 210 mg/dL (75-110); Potassium 3.5 mmol/L (3.4-5.0); Sodium 136 mmol/L (137-145)
[2021-02-18] MEDS: INSULIN ASPART (*BKC) 100 UNITS/ML 24 UNITS SUB-Q ×2 (08:09→17:10)
[2021-02-18] MEDS: LOSARTAN POTASSIUM 50 MG TABLET PO (08:14)
[2021-02-18] MEDS: GABAPENTIN 100 MG CAPSULE PO ×3 (08:14→17:10)
[2021-02-18] MEDS: DOCUSATE SODIUM 100 MG CAPSULE PO ×2 (08:14→20:30)
[2021-02-18] MEDS: MORPHINE SULFATE (*CRX) 4 MG/ML INJ 2 MG IV PUSH ×2 (08:14→18:43)
[2021-02-18] MEDS: METOPROLOL TARTRATE 50 MG TAB 100 MG PO ×2 (08:14→20:30)
[2021-02-18] MEDS: ENOXAPARIN 40 MG/0.4 ML SYRINGE SUB-Q (08:14)
[2021-02-18] MEDS: ATORVASTATIN 40 MG TABLET 80 MG PO (08:14)
[2021-02-18] MEDS: PSYLLIUM POWDER PACKET 1 PACKET PO (08:14)
[2021-02-18 08:32] LABS: Vancomycin Trough 18.3 ug/mL (10.0-20.0)
--- NOTE | 2021-02-18 11:22 | P.PNIM_ITS ---
Progress Note: A&P Assessment and Plan (1) Left leg pain: Code(s): M79.605 - Pain in left leg Status: Acute Assessment and Plan: * Venous Dopplers negative. * CTA Left leg showed Minimal scattered arterial sclerosis with normal three- vessel runoff to foot. Left calf and foot subcutaneous edema. Reactive left pelvic, inguinal lymphadenopathy. * Plan is to keep left leg elevated to decrease swelling * He does report sharp shooting pains, Gabapentin 100 mg TID is working well for him * PRN medications for pain- Tylenol, Tramadol vs Morphine IV * Appears better today. * Redness continues to migrate (2) Sepsis: Qualifiers: Sepsis type: sepsis due to unspecified organism Sepsis acute organ dys function status: unspecified Qualified Code(s): A41.9 - Sepsis, unspecified organism Code(s): A41.9 - Sepsis, unspecified organism Status: Acute Assessment and Plan: * Presented with left groin pain, found to have inflammation around the left inguinal lymph node, likely reactive due to the discovery of left lower extremity cellulitis. * Criteria for sepsis on arrival with leukocytosis and tachycardia in the setting of infection however qSOFA is 0. * Lactic acid level within normal limits. * Imipenem 500mg Q6hr, vancomycin 2000mg IV Q8hr * Vitals stable. No longer septic * Blood cultures show no growth at that time * WBC trending down at 12.5 * Lab in the am * Continue to trend labs (3) Left leg cellulitis: Code(s): L03.116 - Cellulitis of left lower limb Status: Acute Assessment and Plan: * Reddening and swelling to the left lower extremity * IV antibiotics for cellulitis. * Leukocytosis improving * CRP improving slowly. * Trend labs * Labs in the am (4) Hiccups: Code(s): R06.6 - Hiccough Status: Acute Assessment and Plan: * Patient has continuous hiccups * EKG did some boraderline ST-T wave abnormalities * Last stress test in 2016 was normal * Will work up for cardiac abnormality * Unrelieved * Troponin ordered pending * Echo ordered pending * Cardiac arrhythmias noted by patient and panel monitor. (5) Dehydration: Code(s): E86.0 - Dehydration Status: Acute Assessment and Plan: * Problem resolved * He has been started on IV fluids as he appeared dehydrated on exam, * Improved * Euvolemic * D/c IV fluids. 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 * He is working on diet changes and weight loss. * Hold Metformin, adjust insulin to prevent hypoglycemia while hospitalized on DM diet. * Glucoses in the 170-250s * Monitoring Accu-Checks * Continue sliding scale insulin * Hypoglycemic protocol * Adjust medication as needed (7) Hypertension: Qualifiers: Hypertension type: unspecified Qualified Code(s): I10 - Essential (primary) hypertension Code(s): I10 - Essential (randolph
--- NOTE | 2021-02-18 11:22 | PM.IMPN ---
Progress Note: A&P Assessment and Plan (1) Left leg pain: Code(s): M79.605 - Pain in left leg Status: Acute Assessment and Plan: Venous Dopplers negative. CTA Left leg showed Minimal scattered arterial sclerosis with normal three-vessel runoff to foot. Left calf and foot subcutaneous edema. Reactive left pelvic, inguinal lymphadenopathy. Plan is to keep left leg elevated to decrease swelling He does report sharp shooting pains, Gabapentin 100 mg TID is working well for him PRN medications for pain- Tylenol, Tramadol vs Morphine IV Appears better today. Redness continues to migrate (2) Sepsis: Qualifiers: Sepsis type: sepsis due to unspecified organism Sepsis acute organ dysfunction status: unspecified Qualified Code(s): A41.9 - Sepsis, unspecified organism Code(s): A41.9 - Sepsis, unspecified organism Status: Acute Assessment and Plan: Presented with left groin pain, found to have inflammation around the left inguinal lymph node, likely reactive due to the discovery of left lower extremity cellulitis. Criteria for sepsis on arrival with leukocytosis and tachycardia in the setting of infection however qSOFA is 0. Lactic acid level within normal limits. Imipenem 500mg Q6hr, vancomycin 2000mg IV Q8hr Vitals stable. No longer septic Blood cultures show no growth at that time WBC trending down at 12.5 Lab in the am Continue to trend labs (3) Left leg cellulitis: Code(s): L03.116 - Cellulitis of left lower limb Status: Acute Assessment and Plan: Reddening and swelling to the left lower extremity IV antibiotics for cellulitis. Leukocytosis improving CRP improving slowly. Trend labs Labs in the am (4) Hiccups: Code(s): R06.6 - Hiccough Status: Acute Assessment and Plan: Patient has continuous hiccups EKG did some boraderline ST-T wave abnormalities Last stress test in 2016 was normal Will work up for cardiac abnormality Unrelieved Troponin ordered pending Echo ordered pending Cardiac arrhythmias noted by patient and traffic monitor specialist. (5) Dehydration: Code(s): E86.0 - Dehydration Status: Acute Assessment and Plan: Problem resolved He has been started on IV fluids as he appeared dehydrated on exam, Improved Euvolemic D/c IV fluids. 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 He is working on diet changes and weight loss. Hold Metformin, adjust insulin to prevent hypoglycemia while hospitalized on DM diet. Glucoses in the 170-250s Monitoring Accu-Checks Continue sliding scale insulin Hypoglycemic protocol Adjust medication as needed (7) Hypertension: Qualifiers: Hypertension type: unspecified Qualified Code(s): I10 - Essential (primary) hypertension Code(s): I10 - Essential (primary) hypertension Status: Acute Assessment and Plan: Blood pressures were reviewed this morning 127/75. Stable Trend BP Losartan 50mg PO daily, Metoprolol 100mg PO Q12hr Adjust medications as needed (8) Hyperlipidemia: Qualifiers: Hyperlipidemia type: unspecified Qualified Code(s): E78.5 - Hyperlipidemia, unspecified Code(s): E78.5 - Hyperlipidemia, unspecified Status: Acute Assessment and Plan: Continue Atorvastatin 80mg Po Daily (9) Obstructive sleep
[2021-02-18 11:30] LABS: Glucose Point of Care 213 mg/dl (65-105)
[2021-02-18] MEDS: INSULIN ASPART (*BKC) 100 UNITS/ML SUB-Q ×2 (11:44→17:10)
[2021-02-18 12:29] LABS: Troponin I 0.191 ng/mL (0.000-0.034)
[2021-02-18] MEDS: POTASSIUM CHLORIDE 20 MEQ TABLET 40 MEQ PO (13:14)
[2021-02-18] MEDS: PERFLUTREN LIPID MICROSPHERES 1.5 ML VIAL DILUTED TO 10 ML TOTAL VOLUME IV PUSH (13:56)
[2021-02-18] MEDS: traMADol HCL (*CRX) 50 MG TABLET PO ×2 (14:51→20:30)
[2021-02-18 15:18] LABS: Troponin I 0.176 ng/mL (0.000-0.034)
[2021-02-18 17:01] LABS: Glucose Point of Care 249 mg/dl (65-105)
--- NOTE | 2021-02-18 17:27 | PM.CNCAR ---
Assessment and Plan Assessment and plan (1) Sepsis: Qualifiers: Sepsis acute organ dysfunction status: unspecified Sepsis type: sepsis due to unspecified organism Qualified Code(s): A41.9 - Sepsis, unspecified organism Code(s): A41.9 - Sepsis, unspecified organism Status: Acute (2) Hiccups: Code(s): R06.6 - Hiccough Status: Acute (3) Left leg pain: Code(s): M79.605 - Pain in left leg Status: Acute (4) Left leg cellulitis: Code(s): L03.116 - Cellulitis of left lower limb Status: Acute (5) Hyperlipidemia: Qualifiers: Hyperlipidemia type: unspecified Qualified Code(s): E78.5 - Hyperlipidemia, unspecified Code(s): E78.5 - Hyperlipidemia, unspecified Status: Acute (6) Hypertension: Qualifiers: Hypertension type: unspecified Qualified Code(s): I10 - Essential (primary) hypertension Code(s): I10 - Essential (primary) hypertension Status: Acute (7) Type 2 diabetes mellitus: Code(s): E11.9 - Type 2 diabetes mellitus without complications Status: Acute (8) Troponin level elevated: Code(s): R77.8 - Other specified abnormalities of plasma proteins Status: Acute Assessment and Plan: Pt was found to have elevated troponin in setting of sepsis due to cellulitis no acute EKG changes ECHO showed normal LV systolic function (LVEF 60-65%) and diastolic dysfunction will cont meds he may benefit from further cardiac evaluation on outpatient basis when medically stable. (9) Obstructive sleep apnea on CPAP: Code(s): G47.33 - Obstructive sleep apnea (adult) (pediatric); Z99.89 - Dependence on other enabling machines and devices Status: Acute Assessment and Plan: Thank you for consult. Burt ding. History of Present Illness History of Present Illness Consult date/time: 02/18/21 HPI: 55 y/o WM with PMH of DM, CAD s/p Mi, s/p PCI, HTN, HLD presented to [facility] due to LE edema and L groin pain on 02/14/21. Pt noticed LE edema for few weeks. No SOB, CP or palpitations. He had N/V, fever before current admission. Has hx of KS about 10 yrs ago and stated that had stent placed in mid RCA. [facility] States that had ECHO and stress test before which were negative. No hx of CHF. pt was seen and examined, chart was reviewed, case d/w pt's family. Reason For Visit: Cellulitis, DM Review of Systems Review of Systems: All systems reviewed & are unremarkable except as noted in HPI and below Constitutional: Constitutional: Reports as per HPI Eyes: Eyes: Reports as per HPI ENT: Reports system reviewed and no additional complaints, except as documented and Reports as per HPI Cardiovascular: Cardiovascular: Reports as per HPI Respiratory: Respiratory: Reports as per HPI Gastrointestinal: Gastrointestinal: Reports as per HPI Genitourinary: Genitourinary: Reports as per HPI Musculoskeletal: Musculoskeletal: Reports as per HPI [facility] Past Medical History Medical History (Updated 02/18/21 @ 17:37 by Taiwo Youssef MD) Coronary artery disease Hiccups Hyperlipidemia Hypertension Obstructive sleep apnea on CPAP Type 2 diabetes mellitus Surgical History Surgical History (Updated 02/14/21 @ 20:46 by Keyla Gottlieb PA-C) History of cardiac catheterization Stent x1. History of laparoscopic adjustable gastric banding With subsequent removal secondary to erosion. Family History Family History Father Family history of heart disease in male family member before age 55 Mother Chronic obstructive pulmonary disease Social History Social History (Updated 02/14/21 @ 20:49 by Keyla Gottlieb PA-C) Social History: The patient is and lives with his in [place]. He has 3 children. 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 Former smoker, quit about 23 year
[2021-02-18] MEDS: diphenhydrAMINE HCl CAP 25 MG CAPSULE 50 MG BY MOUTH (20:31)
[2021-02-18] MEDS: INSULIN GLARGINE (*BKC) 100 UNITS/ML 47 UNITS SUB-Q (20:31)
[2021-02-18] MEDS: ASPIRIN 81 MG ENTERIC TABLET PO (20:31)
[2021-02-18 22:03] LABS: Troponin I 0.173 ng/mL (0.000-0.034)
[2021-02-19] VITALS (12 sets, daily range): BP systolic 104–133; BP diastolic 50–71; PULSE 82–96; RESP 16–18; TEMP 36.6–37.1; O2SAT 97–98
[2021-02-19 01:12] LABS: Glucose Point of Care 171 mg/dl (65-105)
[2021-02-19] MEDS: MORPHINE SULFATE (*CRX) 4 MG/ML INJ 2 MG IV PUSH ×2 (03:05→06:33)
[2021-02-19 06:02] LABS: Basophils Percent Auto 0.3 % (0.2-1.2); Eosinophils Absolute Auto 0.2 K/mm3 (0-0.3); Hematocrit 33.4 % (42.0-52.0); Hemoglobin 11.2 g/dL (14.0-18.0); Immature Granulocyte Absolute 0.25 K/mm3 (0.00-0.031); Immature Granulocyte Percent A 2.1 % (0-0.5); Lymphocytes Absolute Auto 2.47 K/mm3 (0.9-3.2); Lymphocytes Percent Auto 20.9 % (18.3-44.2); Mean Corpuscular HGB Conc 33.5 g/dl (32-36); Mean Corpuscular Hemoglobin 30.7 pg (26-34); Mean Corpuscular Volume 91.5 fl (80-100); Mean Platelet Volume 9.4 fl (7.4-10.4); Monocytes Absolute Auto 0.9 K/mm3 (0.1-0.6); Monocytes Percent Auto 7.2 % (2.6-8.5); Neutrophils Percent Auto 67.5 % (45.5-73.1); Platelet Count Result 230 k/mm3 (150-375); Red Blood Count 3.65 M/mm3 (4.6-6.20); Red Cell Distribution Width 12.5 % (11.5-14.5); White Blood Count 11.8 K/mm3 (4.5-10.0)
[2021-02-19 06:18] LABS: Alanine Aminotransferase 28 U/L (4-50); Albumin Level 3.2 g/dL (3.5-5.1); Alkaline Phosphatase 78 U/L (38-126); Anion Gap 5 mmol/L (8-16); Aspartate Amino Transferase 28 U/L (17-59); Bilirubin,Total 0.3 mg/dL (0.2-1.3); Blood Urea Nitrogen 7 mg/dL (9-20); Calcium 8.5 mg/dL (8.4-10.2); Carbon Dioxide 29 mmol/L (22-30); Chloride 101 mmol/L (98-107); Estimated CRCL calculation 115 ml/min; Estimated Glomerular Filt Rate > 60; Glucose 190 mg/dL (75-110); Potassium 4.2 mmol/L (3.4-5.0); Sodium 135 mmol/L (137-145)
[2021-02-19 06:23] LABS: NT Pro B Type Natriuretic Pept 343 pg/mL (5-100)
[2021-02-19] MEDS: FUROSEMIDE INJ 40 MG/4 ML VIAL 20 MG IV PUSH (07:19)
[2021-02-19 07:22] LABS: Glucose Point of Care 173 mg/dl (65-105)
[2021-02-19] MEDS: INSULIN ASPART (*BKC) 100 UNITS/ML 24 UNITS SUB-Q ×2 (08:09→17:01)
[2021-02-19] MEDS: LOSARTAN POTASSIUM 50 MG TABLET PO (08:12)
[2021-02-19] MEDS: ATORVASTATIN 40 MG TABLET 80 MG PO (08:12)
[2021-02-19] MEDS: ASPIRIN 81 MG ENTERIC TABLET PO (08:12)
[2021-02-19] MEDS: GABAPENTIN 100 MG CAPSULE PO ×3 (08:12→17:00)
[2021-02-19] MEDS: DOCUSATE SODIUM 100 MG CAPSULE PO ×2 (08:12→20:49)
[2021-02-19] MEDS: ENOXAPARIN 40 MG/0.4 ML SYRINGE SUB-Q (08:12)
[2021-02-19] MEDS: PSYLLIUM POWDER PACKET 1 PACKET PO (08:12)
[2021-02-19] MEDS: METOPROLOL TARTRATE 50 MG TAB 100 MG PO ×2 (08:13→20:49)
--- NOTE | 2021-02-19 08:29 | PM.PNCARD ---
Progress Note: A&P Assessment and Plan (1) Troponin level elevated: Code(s): R77.8 - Other specified abnormalities of plasma proteins Status: Acute Assessment and Plan: 55 y/o with h/o HTN, DM, obesity, CATHERINE on CPAP, h/o of ID s/p RCA PCI who is seen in cardiac consultation for elevated troponin He was found to have borderline elevated troponin that peaked at 0.1 in setting of sepsis due to cellulitis no acute EKG changes No chest pain ECHO showed normal LV systolic function (LVEF 60-65%) and diastolic dysfunction Continue ASA and high intensity statin No plan for any further inpatient cardiac eval. He will need to follow up with his map maker at the ID and consider nuc stress test once medical stable (2) Left leg cellulitis: Code(s): L03.116 - Cellulitis of left lower limb Status: Acute (3) Hyperlipidemia: Qualifiers: Hyperlipidemia type: unspecified Qualified Code(s): E78.5 - Hyperlipidemia, unspecified Code(s): E78.5 - Hyperlipidemia, unspecified Status: Acute (4) Hypertension: Qualifiers: Hypertension type: unspecified Qualified Code(s): I10 - Essential (primary) hypertension Code(s): I10 - Essential (primary) hypertension Status: Acute (5) Type 2 diabetes mellitus: Code(s): E11.9 - Type 2 diabetes mellitus without complications Status: Acute (6) Obstructive sleep apnea on CPAP: Code(s): G47.33 - Obstructive sleep apnea (adult) (pediatric); Z99.89 - Dependence on other enabling machines and devices Status: Acute Assessment and Plan: Thank you for consult. Burt ding. Subjective Date/time seen: 02/19/21 08:29 No overnight events. Still with hiccups. Denies chest pain or dyspnea. Leg cellulitis is about the same Review of Systems Review of Systems: All systems reviewed & are unremarkable except as noted in HPI and below Constitutional: Constitutional: Reports as per HPI Eyes: Eyes: Reports as per HPI ENT: Reports system reviewed and no additional complaints, except as documented and Reports as per HPI Cardiovascular: Cardiovascular: Reports as per HPI Respiratory: Respiratory: Reports as per HPI Gastrointestinal: Gastrointestinal: Reports as per HPI Genitourinary: Genitourinary: Reports as per HPI Musculoskeletal: Musculoskeletal: Reports as per HPI Exam Const: General: alert and awake; No acute distress HENMT: Head: normal to inspection and atraumatic Ears: hearing grossly normal bilaterally Face and sinus: normal facial exam Eyes: General: appearance normal, both eyes and all related structures Pupils: Equal, round and reactive pupils present EOM: EOMs intact bilaterally Neck: Neck: normal visual inspection and no JVD Chest: Chest palpation & inspection: normal inspection of the chest Resp: Effort & Inspection: normal respiratory effort and no respiratory distress Auscultation: clear to auscultation bilaterally Cardio: Jugular venous distension: no JVD Rate: regular rate Heart sounds: S1 normal heart sound present, S2 normal heart sound present and no murmurs GI: Inspection: normal to inspection Auscultation: normal bowel sounds Skin: General skin exam: normal color Neuro: Cranial nerves: Yes Equal, round and reactive pupils present Extrem: General: pedal edema (mild calli with reddness) Objective Data Vital Signs Vital Signs: Vital Signs - 24 hr 02/18/21 12:00 02/18/21 14:00 02/18/21 16:00 Temperature 37.2 C Pulse Rate 88 101 H 98 Respiratory Rate 22 H Blood Pressure 143/72 H Pulse Oximetry 99 02/18/21 20:00 02/18/21 20:30 02/18/21 21:12 Temperature 37.3 C Pulse Rate 96 87 101 H Respiratory Rate 18 18 Blood Pressure 135/68 Pulse Oximetry 97 97 02/18/21 23:20 02/19/21 00:00 02/19/21 04:00 Temperature Pulse Rate 96 96 92 Respiratory Rate Blood Pressure Pulse Oximetry 97 97 02/19/21 06:00 02/19/21 08:13
[2021-02-19] MEDS: KETOROLAC 30 MG/ML VIAL (*BKC) IV PUSH ×2 (10:50→20:49)
[2021-02-19] MEDS: INSULIN ASPART (*BKC) 100 UNITS/ML SUB-Q (11:50)
[2021-02-19 11:56] LABS: Glucose Point of Care 307 mg/dl (65-105)
--- NOTE | 2021-02-19 13:15 | PM.IMPN ---
Progress Note: A&P Assessment and Plan (1) Left leg pain: Code(s): M79.605 - Pain in left leg Status: Acute Assessment and Plan: Venous Dopplers negative. CTA Left leg showed Minimal scattered arterial sclerosis with normal three-vessel runoff to foot. Left calf and foot subcutaneous edema. Reactive left pelvic, inguinal lymphadenopathy. Plan is to keep left leg elevated to decrease swelling He does report sharp shooting pains, Gabapentin 100 mg TID is working well for him PRN medications for pain- Tylenol, morphine 1mg iv Q6hr and toradol 30mg IV q6hr Appears better today. Redness is decreasing (2) Sepsis: Code(s): A41.9 - Sepsis, unspecified organism Status: Acute Assessment and Plan: Presented with left groin pain, found to have inflammation around the left inguinal lymph node, likely reactive due to the discovery of left lower extremity cellulitis. Criteria for sepsis on arrival with leukocytosis and tachycardia in the setting of infection however qSOFA is 0. Lactic acid level within normal limits. Imipenem 500mg Q6hr, vancomycin 2000mg IV Q8hr Vitals stable. No longer septic Blood cultures show no growth at that time WBC trending down at 118 Lab in the am Continue to trend labs (3) Left leg cellulitis: Code(s): L03.116 - Cellulitis of left lower limb Status: Acute Assessment and Plan: Reddening and swelling to the left lower extremity IV antibiotics for cellulitis. Leukocytosis improving CRP improving slowly. Trend labs Labs in the am (4) Hiccups: Code(s): R06.6 - Hiccough Status: Acute Assessment and Plan: Patient has continuous hiccups EKG did some borderline ST-T wave abnormalities Last stress test in 2016 was normal Will work up for cardiac abnormality Unrelieved Troponin peaked at 0.191 Echo was unremarkable Cardiac arrhythmias noted by patient and environmental monitoring specialist. (5) Dehydration: Code(s): E86.0 - Dehydration Status: Acute Assessment and Plan: Problem resolved He has been started on IV fluids as he appeared dehydrated on exam, Improved Euvolemic D/c IV fluids. 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 He is working on diet changes and weight loss. Hold Metformin, adjust insulin to prevent hypoglycemia while hospitalized on DM diet. Glucoses in the 170-250s Monitoring Accu-Checks Continue sliding scale insulin Hypoglycemic protocol Adjust medication as needed (7) Hypertension: Qualifiers: Hypertension type: unspecified Qualified Code(s): I10 - Essential (primary) hypertension Code(s): I10 - Essential (primary) hypertension Status: Acute Assessment and Plan: Blood pressures were reviewed this morning 127/75. Stable Trend BP Losartan 50mg PO daily, Metoprolol 100mg PO Q12hr Adjust medications as needed (8) Hyperlipidemia: Qualifiers: Hyperlipidemia type: unspecified Qualified Code(s): E78.5 - Hyperlipidemia, unspecified Code(s): E78.5 - Hyperlipidemia, unspecified Status: Acute Assessment and Plan: Continue Atorvastatin 80mg Po Daily (9) Obstructive sleep apnea on CPAP: Code(s): G47.33 - Obstructive sleep apnea (adult) (pediatric); Z99.89 - Dependence on other enabling machines and devices Status: Acute
--- NOTE | 2021-02-19 13:15 | P.PNIM_ITS ---
Progress Note: A&P Assessment and Plan (1) Left leg pain: Code(s): M79.605 - Pain in left leg Status: Acute Assessment and Plan: * Venous Dopplers negative. * CTA Left leg showed Minimal scattered arterial sclerosis with normal three- vessel runoff to foot. Left calf and foot subcutaneous edema. Reactive left pelvic, inguinal lymphadenopathy. * Plan is to keep left leg elevated to decrease swelling * He does report sharp shooting pains, Gabapentin 100 mg TID is working well for him * PRN medications for pain- Tylenol, morphine 1mg iv Q6hr and toradol 30mg IV q6hr * Appears better today. * Redness is decreasing (2) Sepsis: Code(s): A41.9 - Sepsis, unspecified organism Status: Acute Assessment and Plan: * Presented with left groin pain, found to have inflammation around the left inguinal lymph node, likely reactive due to the discovery of left lower extremity cellulitis. * Criteria for sepsis on arrival with leukocytosis and tachycardia in the setting of infection however qSOFA is 0. * Lactic acid level within normal limits. * Imipenem 500mg Q6hr, vancomycin 2000mg IV Q8hr * Vitals stable. No longer septic * Blood cultures show no growth at that time * WBC trending down at 118 * Lab in the am * Continue to trend labs (3) Left leg cellulitis: Code(s): L03.116 - Cellulitis of left lower limb Status: Acute Assessment and Plan: * Reddening and swelling to the left lower extremity * IV antibiotics for cellulitis. * Leukocytosis improving * CRP improving slowly. * Trend labs * Labs in the am (4) Hiccups: Code(s): R06.6 - Hiccough Status: Acute Assessment and Plan: * Patient has continuous hiccups * EKG did some borderline ST-T wave abnormalities * Last stress test in 2016 was normal * Will work up for cardiac abnormality * Unrelieved * Troponin peaked at 0.191 * Echo was unremarkable * Cardiac arrhythmias noted by patient and threat monitoring analyst. (5) Dehydration: Code(s): E86.0 - Dehydration Status: Acute Assessment and Plan: * Problem resolved * He has been started on IV fluids as he appeared dehydrated on exam, * Improved * Euvolemic * D/c IV fluids. 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 * He is working on diet changes and weight loss. * Hold Metformin, adjust insulin to prevent hypoglycemia while hospitalized on DM diet. * Glucoses in the 170-250s * Monitoring Accu-Checks * Continue sliding scale insulin * Hypoglycemic protocol * Adjust medication as needed (7) Hypertension: Qualifiers: Hypertension type: unspecified Qualified Code(s): I10 - Essential (primary) hypertension Code(s): I10 - Essential (primary) hypertension Status: Acute Assessment and Plan: * Blood pressures were reviewed * this morning 127/75. * Stable * Trend BP *
[2021-02-19 16:48] LABS: Glucose Point of Care 135 mg/dl (65-105)
[2021-02-19] MEDS: diphenhydrAMINE HCl CAP 25 MG CAPSULE 50 MG BY MOUTH (20:49)
[2021-02-19] MEDS: INSULIN GLARGINE (*BKC) 100 UNITS/ML 47 UNITS SUB-Q (20:50)
[2021-02-19 20:56] LABS: Glucose Point of Care 327 mg/dl (65-105)
[2021-02-20] VITALS: PULSE 76
--- NOTE | 2021-02-20 05:06 | PC.NURSE ---
Patient refused to put him monitor on, said I talk to the doctor and he said I have no health history so I don't need it. Education was done on the residential monitor. Patient stated he understood.
[2021-02-20 06:00] VITALS: BP 122/61; PULSE 80; RESP 18; TEMP 36.2; O2SAT 99
[2021-02-20 06:15] LABS: Hematocrit 34.1 % (42.0-52.0); Hemoglobin 11.5 g/dL (14.0-18.0); Mean Corpuscular HGB Conc 33.7 g/dl (32-36); Mean Corpuscular Hemoglobin 30.4 pg (26-34); Mean Corpuscular Volume 90.2 fl (80-100); Mean Platelet Volume 9.3 fl (7.4-10.4); Platelet Count Result 248 k/mm3 (150-375); Red Blood Count 3.78 M/mm3 (4.6-6.20); Red Cell Distribution Width 12.2 % (11.5-14.5); White Blood Count 9.5 K/mm3 (4.5-10.0)
[2021-02-20 06:37] LABS: Alanine Aminotransferase 31 U/L (4-50); Albumin Level 3.1 g/dL (3.5-5.1); Alkaline Phosphatase 85 U/L (38-126); Anion Gap 7 mmol/L (8-16); Aspartate Amino Transferase 24 U/L (17-59); Bilirubin,Total 0.3 mg/dL (0.2-1.3); Blood Urea Nitrogen 8 mg/dL (9-20); Calcium 8.7 mg/dL (8.4-10.2); Carbon Dioxide 30 mmol/L (22-30); Chloride 101 mmol/L (98-107); Estimated CRCL calculation 115 ml/min; Estimated Glomerular Filt Rate > 60; Glucose 200 mg/dL (75-110); Potassium 3.6 mmol/L (3.4-5.0); Sodium 138 mmol/L (137-145)
[2021-02-20 08:16] LABS: Glucose Point of Care 170 mg/dl (65-105)
[2021-02-20] MEDS: INSULIN ASPART (*BKC) 100 UNITS/ML 24 UNITS SUB-Q (08:45)
[2021-02-20 08:49] VITALS: PULSE 62
[2021-02-20] MEDS: METOPROLOL TARTRATE 50 MG TAB 100 MG PO (08:49)
[2021-02-20] MEDS: PSYLLIUM POWDER PACKET 1 PACKET PO (08:49)
[2021-02-20] MEDS: DOCUSATE SODIUM 100 MG CAPSULE PO (08:49)
[2021-02-20] MEDS: GABAPENTIN 100 MG CAPSULE PO ×2 (08:49→12:59)
[2021-02-20] MEDS: LOSARTAN POTASSIUM 50 MG TABLET PO (08:50)
[2021-02-20] MEDS: ENOXAPARIN 40 MG/0.4 ML SYRINGE SUB-Q (08:50)
[2021-02-20] MEDS: ATORVASTATIN 40 MG TABLET 80 MG PO (08:51)
[2021-02-20] MEDS: ASPIRIN 81 MG ENTERIC TABLET PO (08:51)
[2021-02-20] MEDS: KETOROLAC 30 MG/ML VIAL (*BKC) IV PUSH (09:21)
--- NOTE | 2021-02-20 10:36 | P.DS_ITS ---
DS: Admitting Diagnosis Admitting Diagnosis Admitting Diagnosis: Cellulitis of the left lower extremity DS: Discharge Diagnosis Discharge Diagnosis (1) Left leg pain: Code(s): M79.605 - Pain in left leg Status: Acute Assessment and Plan: * Venous Dopplers negative. * CTA Left leg showed Minimal scattered arterial sclerosis with normal three- vessel runoff to foot. Left calf and foot subcutaneous edema. Reactive left pelvic, inguinal lymphadenopathy. * Plan is to keep left leg elevated to decrease swelling * He does report sharp shooting pains, Gabapentin 100 mg TID is working well for him * PRN medications for pain- Tylenol, morphine 1mg iv Q6hr and toradol 30mg IV q6hr * Appears better today. * Redness is decreasing (2) Sepsis: Qualifiers: Sepsis acute organ dysfunction status: without acute organ dysfunction Sepsis type: sepsis due to unspecified organism Qualified Code(s): A41.9 - Sepsis, unspecified organism Code(s): A41.9 - Sepsis, unspecified organism Status: Acute Assessment and Plan: * Presented with left groin pain, found to have inflammation around the left inguinal lymph node, likely reactive due to the discovery of left lower extremity cellulitis. * Criteria for sepsis on arrival with leukocytosis and tachycardia in the setting of infection however qSOFA is 0. * Lactic acid level within normal limits. * Imipenem 500mg Q6hr, vancomycin 2000mg IV Q8hr * Vitals stable. No longer septic * Blood cultures show no growth at that time * WBC trending down at 118 * Lab in the am * Continue to trend labs (3) Left leg cellulitis: Code(s): L03.116 - Cellulitis of left lower limb Status: Acute Assessment and Plan: * Reddening and swelling to the left lower extremity * IV antibiotics for cellulitis. * Leukocytosis improving * CRP improving slowly. * Trend labs * Labs in the am (4) Hiccups: Code(s): R06.6 - Hiccough Status: Acute Assessment and Plan: * Patient has continuous hiccups * EKG did some borderline ST-T wave abnormalities * Last stress test in 2016 was normal * Will work up for cardiac abnormality * Unrelieved * Troponin peaked at 0.191 * Echo was unremarkable * Cardiac arrhythmias noted by patient and python developer. (5) Dehydration: Code(s): E86.0 - Dehydration Status: Acute Assessment and Plan: * Problem resolved * He has been started on IV fluids as he appeared dehydrated on exam, * Improved * Euvolemic * D/c IV fluids. (6) Type 2 diabetes mellitus with hyperglycemia: Qualifiers: Diabetes mellitus flower arranger insulin use: with residential use Qualified Code(s): E11.65 - Type 2 diabetes mellitus with hyperglycemia; Z79.4 - custodial (current) use of insulin Code(s): E11.65 - Type 2 diabetes mellitus with hyperglycemia Status: Acute Assessment and Plan: * Patient has been on insulin for the last 15 years * Patient is on Lantus, Novolog, Metformin and Victoza with HgbA1c 9.9% which he states is down from 11 where he was 1 month ago. * He is working on diet changes and weight loss. * Hold Metformin, adjust insulin to prevent hypoglycemia while hospitalized on DM diet. * Glucoses in the 170-250s * Monitoring Accu-Checks * Continue sliding scale insulin * Hypoglycemic protocol * Adjust medication as needed (7) Hypertension:
--- NOTE | 2021-02-20 10:36 | PM.DS ---
DS: Admitting Diagnosis Admitting Diagnosis Admitting Diagnosis: Cellulitis of the left lower extremity DS: Discharge Diagnosis Discharge Diagnosis (1) Left leg pain: Code(s): M79.605 - Pain in left leg Status: Acute Assessment and Plan: Venous Dopplers negative. CTA Left leg showed Minimal scattered arterial sclerosis with normal three-vessel runoff to foot. Left calf and foot subcutaneous edema. Reactive left pelvic, inguinal lymphadenopathy. Plan is to keep left leg elevated to decrease swelling He does report sharp shooting pains, Gabapentin 100 mg TID is working well for him PRN medications for pain- Tylenol, morphine 1mg iv Q6hr and toradol 30mg IV q6hr Appears better today. Redness is decreasing (2) Sepsis: Qualifiers: Sepsis acute organ dysfunction status: without acute organ dysfunction Sepsis type: sepsis due to unspecified organism Qualified Code(s): A41.9 - Sepsis, unspecified organism Code(s): A41.9 - Sepsis, unspecified organism Status: Acute Assessment and Plan: Presented with left groin pain, found to have inflammation around the left inguinal lymph node, likely reactive due to the discovery of left lower extremity cellulitis. Criteria for sepsis on arrival with leukocytosis and tachycardia in the setting of infection however qSOFA is 0. Lactic acid level within normal limits. Imipenem 500mg Q6hr, vancomycin 2000mg IV Q8hr Vitals stable. No longer septic Blood cultures show no growth at that time WBC trending down at 118 Lab in the am Continue to trend labs (3) Left leg cellulitis: Code(s): L03.116 - Cellulitis of left lower limb Status: Acute Assessment and Plan: Reddening and swelling to the left lower extremity IV antibiotics for cellulitis. Leukocytosis improving CRP improving slowly. Trend labs Labs in the am (4) Hiccups: Code(s): R06.6 - Hiccough Status: Acute Assessment and Plan: Patient has continuous hiccups EKG did some borderline ST-T wave abnormalities Last stress test in 2016 was normal Will work up for cardiac abnormality Unrelieved Troponin peaked at 0.191 Echo was unremarkable Cardiac arrhythmias noted by patient and surveillance monitor. (5) Dehydration: Code(s): E86.0 - Dehydration Status: Acute Assessment and Plan: Problem resolved He has been started on IV fluids as he appeared dehydrated on exam, Improved Euvolemic D/c IV fluids. 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 He is working on diet changes and weight loss. Hold Metformin, adjust insulin to prevent hypoglycemia while hospitalized on DM diet. Glucoses in the 170-250s Monitoring Accu-Checks Continue sliding scale insulin Hypoglycemic protocol Adjust medication as needed (7) Hypertension: Qualifiers: Hypertension type: unspecified Qualified Code(s): I10 - Essential (primary) hypertension Code(s): I10 - Essential (primary) hypertension Status: Acute Assessment and Plan: Blood pressures were reviewed this morning 127/75. Stable Trend BP Losartan 50mg PO daily, Metoprolol 100mg PO Q12hr Adjust medications as needed (8) Hyperlipidemia: Qualifiers: Hyperlipidemia type: unspecified Qualified Code(s): E78.5 - Hyperlipidemia, unspecified Code(s): E78.5
--- NOTE | 2021-02-20 10:56 | PM.PNCARD ---
Progress Note: A&P Assessment and Plan (1) Troponin level elevated: Code(s): R77.8 - Other specified abnormalities of plasma proteins Status: Acute Assessment and Plan: 55 y/o with h/o HTN, DM, obesity, CATHERINE on CPAP, h/o of IN s/p RCA PCI who is seen in cardiac consultation for elevated troponin He was found to have mildly elevated troponin that peaked at 0.1 in setting of sepsis due to cellulitis no acute EKG changes No chest pain ECHO showed normal LV systolic function (LVEF 60-65%) and diastolic dysfunction Continue ASA and high intensity statin He is stable for discharge from cardiac standpoint. Follow up with his public services assistant at the [facility]. Consider nuc stress test once medical stable (2) Left leg cellulitis: Code(s): L03.116 - Cellulitis of left lower limb Status: Acute (3) Hyperlipidemia: Qualifiers: Hyperlipidemia type: unspecified Qualified Code(s): E78.5 - Hyperlipidemia, unspecified Code(s): E78.5 - Hyperlipidemia, unspecified Status: Acute (4) Hypertension: Qualifiers: Hypertension type: unspecified Qualified Code(s): I10 - Essential (primary) hypertension Code(s): I10 - Essential (primary) hypertension Status: Acute (5) Type 2 diabetes mellitus: Code(s): E11.9 - Type 2 diabetes mellitus without complications Status: Acute (6) Obstructive sleep apnea on CPAP: Code(s): G47.33 - Obstructive sleep apnea (adult) (pediatric); Z99.89 - Dependence on other enabling machines and devices Status: Acute Assessment and Plan: Thank you for consult. Burt ding. Subjective Date/time seen: 02/20/21 10:56 His leg feels much better today and swelling/erythema has improved. He would like to go home if possible today. Review of Systems Review of Systems: All systems reviewed & are unremarkable except as noted in HPI and below Constitutional: Constitutional: Reports as per HPI Eyes: Eyes: Reports as per HPI ENT: Reports system reviewed and no additional complaints, except as documented and Reports as per HPI Cardiovascular: Cardiovascular: Reports as per HPI Respiratory: Respiratory: Reports as per HPI Gastrointestinal: Gastrointestinal: Reports as per HPI Genitourinary: Genitourinary: Reports as per HPI Musculoskeletal: Musculoskeletal: Reports as per HPI Exam Const: General: alert and awake; No acute distress HENMT: Head: normal to inspection and atraumatic Ears: hearing grossly normal bilaterally Face and sinus: normal facial exam Eyes: General: appearance normal, both eyes and all related structures Pupils: Equal, round and reactive pupils present EOM: EOMs intact bilaterally Neck: Neck: normal visual inspection and no JVD Chest: Chest palpation & inspection: normal inspection of the chest Resp: Effort & Inspection: normal respiratory effort and no respiratory distress Auscultation: clear to auscultation bilaterally Cardio: Jugular venous distension: no JVD Rate: regular rate Heart sounds: S1 normal heart sound present, S2 normal heart sound present and no murmurs GI: Inspection: normal to inspection Auscultation: normal bowel sounds Skin: General skin exam: normal color Neuro: Cranial nerves: Yes Equal, round and reactive pupils present Extrem: General: pedal edema (mild calli with reddness) Objective Data Vital Signs Vital Signs: Vital Signs - 24 hr 02/19/21 12:00 02/19/21 14:00 02/19/21 16:00 Temperature 36.6 C Pulse Rate 86 84 95 Respiratory Rate 18 Blood Pressure 107/59 L Pulse Oximetry 98 02/19/21 19:42 02/19/21 20:00 02/19/21 20:49 Temperature Pulse Rate 95 88 82 Respiratory Rate 18 Blood Pressure Pulse Oximetry 98 02/19/21 22:00 02/20/21 00:00 02/20/21 06:00 Temperature 36.8 C 36.2 C L Pulse Rate 87 76 80 Respiratory Rate 18 18 Blood Pressure 133/71 122/61 Pulse Oximetry 97 99 02/20/21 08:49 Temperature Pulse Rat
[2021-02-20 11:27] LABS: Glucose Point of Care 293 mg/dl (65-105)
[2021-02-20] MEDS: INSULIN ASPART (*BKC) 100 UNITS/ML SUB-Q (11:33)
[2021-02-20] MEDS: POTASSIUM CHLORIDE 20 MEQ TABLET 40 MEQ PO (11:36)
== END 2021-02-20 13:15 | disposition home or self-care (01) | DRG 872 ==
LOC: ANHED 16:16 → ANH3MEDSUR 20:55
PROVIDERS: Emergency Medicine; Physician Assistant; Admitting Provider Family Medicine; Emergency Provider Emergency Medicine; PCP Family Medicine; Visit Provider Nurse Practitioner
DX: A41.9 Sepsis, unspecified organism (principal); L03.116 Cellulitis of left lower limb; M79.605 Pain in left leg; R06.6 Hiccough; R77.8 Other specified abnormalities of plasma proteins; E86.0 Dehydration; E11.65 Type 2 diabetes mellitus with hyperglycemia; I25.10 Atherosclerotic heart disease of native coronary artery without angina pectoris; I10 Essential (primary) hypertension; E78.5 Hyperlipidemia, unspecified; G47.33 Obstructive sleep apnea (adult) (pediatric); Z99.89 Dependence on other enabling machines and devices; Z79.4 Long term (current) use of insulin; Z79.899 Other long term (current) drug therapy; Z95.5 Presence of coronary angioplasty implant and graft; I25.2 Old myocardial infarction
CPT/HCPCS: 36415; 73706; 74177; 80048; 80053; 80076; 80202; 81001; 82010; 82948; 83036; 83605; 83690; 83735; 83880; 84443; 84484; 85025; 85027; 86140; 87040; 93005; 93970; 96361; 96365; 96375; 99285; A9270; C8929; J0743; J1650; J1815; J1885; J1940; J2270; J2543; J3370; J7030; J7120; Q9957; Q9967

== ENCOUNTER → 2021-09-02 14:24 | Outpatient (CLI) | payer OTHER, SELFPAY ==
--- NOTE | ~2021-09-02 | XR_ITS ---
EXAMINATION: XR abdomen/kub 1V INDICATION: Left flank pain TECHNIQUE: Supine views of the abdomen were obtained on 2 radiographs. COMPARISON: CT, 02/14/2021 FINDINGS: The bowel gas pattern is normal. There are no dilated loops of bowel. The visualized lung b ases are clear. IMPRESSION: 1. No radiographic correlate for the patient's symptoms. Reviewed, dictated and finalized at location F. FACTURING BUSINESS ANALYST
== END ==
PROVIDERS: Visit Provider Physician Assistant Medical
DX: R10.9 Unspecified abdominal pain (principal)
CPT/HCPCS: 74018

== ENCOUNTER 2021-09-05 06:53 | Outpatient (CLI) | payer OTHER, SELFPAY ==
[2021-09-05 07:14] LABS: Basophils Percent Auto 0.4 % (0.2-1.2); Eosinophils Absolute Auto 0.1 K/mm3 (0-0.3); Eosinophils Percent Auto 1.3 % (0-4.4); Hematocrit 43.5 % (42.0-52.0); Hemoglobin 15.4 g/dL (14.0-18.0); Immature Granulocyte Absolute 0.02 K/mm3 (0.00-0.031); Immature Granulocyte Percent A 0.3 % (0-0.5); Lymphocytes Absolute Auto 2.56 K/mm3 (0.9-3.2); Lymphocytes Percent Auto 34.5 % (18.3-44.2); Mean Corpuscular HGB Conc 35.4 g/dl (32-36); Mean Corpuscular Hemoglobin 31.2 pg (26-34); Mean Corpuscular Volume 88.2 fl (80-100); Mean Platelet Volume 9.5 fl (7.4-10.4); Monocytes Absolute Auto 0.5 K/mm3 (0.1-0.6); Monocytes Percent Auto 7.3 % (2.6-8.5); Neutrophils Absolute Auto 4.2 K/mm3 (1.3-6.7); Neutrophils Percent Auto 56.2 % (45.5-73.1); Platelet Count Result 184 k/mm3 (150-375); Red Blood Count 4.93 M/mm3 (4.6-6.20); Red Cell Distribution Width 12.4 % (11.5-14.5); White Blood Count 7.4 K/mm3 (4.5-10.0)
[2021-09-05 07:25] LABS: Alanine Aminotransferase 26 U/L (4-50); Albumin Level 4.5 g/dL (3.5-5.1); Alkaline Phosphatase 84 U/L (38-126); Anion Gap 9 mmol/L (8-16); Aspartate Amino Transferase 22 U/L (17-59); Bilirubin,Total 0.5 mg/dL (0.2-1.3); Blood Urea Nitrogen 11 mg/dL (9-20); Calcium 9.2 mg/dL (8.4-10.2); Carbon Dioxide 27 mmol/L (22-30); Chloride 98 mmol/L (98-107); Estimated Glomerular Filt Rate > 60; Glucose 292 mg/dL (65-110); Potassium 4.4 mmol/L (3.4-5.0); Sodium 134 mmol/L (137-145)
== END 2021-09-05 06:54 | disposition home or self-care (01) ==
PROVIDERS: Physician Assistant Medical; PCP Family Medicine; Visit Provider Nurse Practitioner Family
DX: D64.9 Anemia, unspecified (principal); R10.9 Unspecified abdominal pain
CPT/HCPCS: 36415; 80053; 85025

== ENCOUNTER 2021-12-07 07:39 | Emergency (ER) | payer OTHER, SELFPAY ==
--- NOTE | ~2021-12-07 | XR_ITS ---
EXAMINATION: XR thoracolumbar INDICATION: Back pain after fall TECHNIQUE: AP and lateral views of the thoracolumbar spine are obtained on three radiographs. COMPARISON: None available FINDINGS: Bone alignment is normal. There is no fracture. The vertebral body heights are maintained. There is mild loss of intervertebral disc space height in the lower thoracic spine and lumbar spine. Small degenerative osteophytes project from the anterior endplates of multiple vertebral bodies. IMPRESSION: 1. Mild thoracolumbar spondylosis without acute osseous abnormality. Reviewed, dictated and finalized at location A.
[2021-12-07 07:48] VITALS: BP 173/120; PULSE 112; RESP 20; TEMP 36.8; O2SAT 97
[2021-12-07 07:53] VITALS: BP 183/99; PULSE 109; RESP 20; O2SAT 97
--- NOTE | 2021-12-07 08:17 | ED.BACK ---
HPI - Back Pain/Injury General Chief Complaint: Fall Stated Complaint: glf on butt last night, back is killing me Time Seen by Provider: 12/07/21 07:47 Source: patient and family Mode of arrival: ambulatory Limitations: no limitations History of Present Illness HPI Narrative: 56-year-old male presents emergency room accompanied by his . He had a fall at home last night. He states he was wearing some slippers last night and his feet went out from under him and he landed directly on his buttock. Been having pain in the midportion of his back ever since. He took some Tylenol as well as had an old prescription for tramadol and took those but got no relief. Complaining of some midline pain in about the region of the lower thoracic upper lumbar region as well as some pain more localized to the left side. Has no pain radiation down his legs. Is difficult when he tries to move but as long as he is lying flat states is not having significant pain. No bowel or bladder issues are noted. Related Data Home Medications Medication Instructions Recorded Confirmed atorvastatin 80 mg PO DAILY 02/14/21 11/10/21 losartan 50 mg PO DAILY 02/14/21 11/10/21 metformin 500 mg PO BID 02/14/21 11/10/21 metoprolol tartrate 100 mg PO DAILY 02/14/21 11/10/21 Lantus Solostar U-100 Insulin 52 unit SUBCUT DAILY 02/15/21 11/10/21 Novolog Flexpen U-100 Insulin 32 unit SUBCUT BID 02/15/21 11/10/21 Victoza 2-Sha 1.8 mg SUBCUT DAILY 02/15/21 11/10/21 buspirone 10 mg tablet 10 mg PO BID 11/10/21 11/10/21 garlic 300 mg PO DAILY 11/10/21 11/10/21 Allergies Allergy/AdvReac Type Severity Reaction Status Date / Time No Known Allergies Allergy Verified 11/10/21 13:12 Review of Systems Review of Systems: CONSTITUTIONAL: Denies fever, chills, or sweats. EYES: Denies visual changes, redness, or discharge. ENT: Denies rhinorrhea, congestion, sore throat, or otalgia. CARDIOVASCULAR: Denies chest pain, palpitations, or edema. RESPIRATORY: Denies cough or dyspnea. GASTROINTESTINAL: Denies abdominal pain, nausea, vomiting, or diarrhea. GENITOURINARY: Denies dysuria or hematuria. SKIN: Denies rash or itching. MUSCULOSKELETAL: Back pain as noted in the HPI. No extremity pain NEUROLOGIC: Denies headache, numbness, or weakness. PSYCHIATRIC: Denies anxiety or depression. [facility] Past Medical History Medical History Abnormal weight gain BMI 37.0-37.9, adult BMI 38.0-38.9,adult Coronary artery disease Dietary counseling and surveillance (03/10/16) Hiccups History of heart attack History of neck injury Hx of smoking Hyperlipidemia Hypertension Injury of median nerve at wrist and hand level of right arm, initial encounter Morbid obesity due to excess calories Obstructive sleep apnea on CPAP Pre-operative cardiovascular examination Type 2 diabetes mellitus Type 2 diabetes mellitus without complication, with usp current use of insulin pump Surgical History Surgical History History of cardiac catheterization Stent x1. History of laparoscopic adjustable gastric banding With subsequent removal secondary to erosion. Family History Family History Father Family history of heart disease in male family member before age 55 Mother Chronic obstructive pulmonary disease Tobacco abuse Sibling No problems noted. Social History Social History Social History: The patient is and lives with his in [place]. He has 3 children. 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 Former smoker, quit about 23 years ago. He drinks 2 beers a week. No illicit substance use. He designates his , Smita, as his surrogate decision maker and he wishes to be a full code. Smoking packs per day: 2 Smoking cigarettes per day
[2021-12-07] MEDS: HYDROcodone/acetaminophen (*CRX) 5-325 MG TABLET 1 TAB PO (08:30)
[2021-12-07] MEDS: CYCLOBENZAPRINE HCL 10 MG TABLET PO (08:30)
[2021-12-07] MEDS: KETOROLAC (*BKC) 60 MG/2 ML VIAL IM (08:30)
[2021-12-07 09:46] VITALS: BP 165/94; PULSE 101; RESP 18; O2SAT 95
== END 2021-12-07 09:48 | disposition home or self-care (01) ==
PROVIDERS: Emergency Provider Emergency Medicine; PCP Family Medicine
DX: S39.92XA Unspecified injury of lower back, initial encounter (principal); I25.10 Atherosclerotic heart disease of native coronary artery without angina pectoris; I25.2 Old myocardial infarction; E78.5 Hyperlipidemia, unspecified; I10 Essential (primary) hypertension; E11.9 Type 2 diabetes mellitus without complications; E66.01 Morbid (severe) obesity due to excess calories; Z68.39 Body mass index [BMI] 39.0-39.9, adult; Z87.891 Personal history of nicotine dependence; M47.815 Spondylosis without myelopathy or radiculopathy, thoracolumbar region; Z79.84 Long term (current) use of oral hypoglycemic drugs; Z79.4 Long term (current) use of insulin; W01.0XXA Fall on same level from slipping, tripping and stumbling without subsequent striking against object, initial encounter
CPT/HCPCS: 72080; 96372; 99283; A9270; J1885

== ENCOUNTER 2022-05-19 07:33 | Outpatient (CLI) | payer OTHER, SELFPAY ==
[2022-05-19 07:57] LABS: Cholesterol 219 mg/dL (0-200); HDL Direct 41 mg/dL; Triglycerides 353 mg/dL (<150)
[2022-05-19 08:08] LABS: LDL Cholesterol Direct 108 mg/dL
== END 2022-05-19 07:34 | disposition home or self-care (01) ==
PROVIDERS: PCP Family Medicine; Visit Provider Internal Medicine Cardiovascular Disease
DX: E78.5 Hyperlipidemia, unspecified (principal)
CPT/HCPCS: 36415; 80061

== ENCOUNTER 2022-05-20 08:53 | Outpatient (CLI) | payer OTHER, SELFPAY ==
--- NOTE | ~2022-05-20 | NM_ITS ---
EXAMINATION: NM maria stress w perfusion DATE: 05/20/2022 12:47 INDICATION: Other forms of dyspnea. TECHNIQUE: Rest images were obtained following intravenous administration of 10.2 mCi Tc99m tetrofosm in (Myoview). The patient was infused intravenously with Lexiscan (regadenoson). Then, 30.2 mCi Tc99m tetrofosmin (Myoview) was administered intravenously, and supine and prone stress images were obtain ed. Data was reconstructed into short axis and horizontal and vertical long axis SPECT images. Gated SPECT images were also obtained. COMPARISON: Myocardial perfusion imaging 03/18/2016, CT abdomen and pelvis 02/14/2021 FINDINGS: There is a small, mild, reversible or perfusion defect involving left ventricular apex and apical inferior segment, consistent with ischemia. There is no segmental wall motion abnormality. L eft ventricular ejection fraction measures 61%. IMPRESSION: 1. Small area of mild ischemia involving left ventricular apex and apical inferior segment. 2. Normal left ventricular ejection fraction measuring 61%. Reviewed, dictated and finalized at location A. IMPRESSION: 1. Small area of mild ischemia involving left ventricular apex and apical infer ior segment. 2. Normal left ventricular ejection fraction measuring 61%.
--- NOTE | 2022-05-20 08:58 | EST_ITS ---
Patient Info Name: Roland Vergara Age: 57 years : 1965 Gender: Male Ht: 65 in Wt: 240 lbs BSA: 2.29 m2 HR: 86 bpm BP: 150 / 82 mmHg Heart Rhythm: Sinus Rhythm Exam Date: 05/20/2022 10:40 AM Exam Location: [facility] Stress Patient Status: Outpatient Admit Date: 05/20/2022 Staff Ordering Physician: Gomez Barbosa DO Attending Provider: Gomez Barbosa DO Exercise Technologist: Eileen Lozano CT Exercise Physician: Gomez Barbosa DO Exam Type: CA stress maria w NM Study Info Indications R06.00 - Dyspnea, unspecified A regadenoson stress test was performed. Summary 1. 1. Negative lexiscan stress test for ischemic ST changes by ECG criteria. 2. 2. Baseline hypertension. 3. 3. Nuclear scan to follow and will be reported separately. Please correlate with it. 4. 4. Patient informed of the above results. Protocol: Lexiscan Stress ECG Details Stage: REST Duration (min): 0 min : 51 sec HR (bpm): 84 SBP (mmHg): 150 DBP (mmHg): 82 Stage: REST Duration (min): 11 min : 56 sec HR (bpm): 84 SBP (mmHg): 150 DBP (mmHg): 82 Stage: STAGE 1 Duration (min): 1 min : 0 sec HR (bpm): 93 SBP (mmHg): 133 DBP (mmHg): 70 Stage: RECOVERY Duration (min): 1 min : 0 sec HR (bpm): 97 SBP (mmHg): 133 DBP (mmHg): 70 Stage: RECOVERY Duration (min): 2 min : 0 sec HR (bpm): 95 SBP (mmHg): 133 DBP (mmHg): 70 Stage: RECOVERY Duration (min): 3 min : 0 sec HR (bpm): 94 SBP (mmHg): 127 DBP (mmHg): 66 Stage: RECOVERY Duration (min): 3 min : 15 sec HR (bpm): 92 SBP (mmHg): 127 DBP (mmHg): 66 Rest HR: 84 bpm Peak HR: 98 bpm Rest Sys BP: 150 mmHg Peak Sys BP: 133 mmHg Max Pred HR: 163 bpm % Max Pred HR: 60 % Target HR: 139 bpm Max RPP: 13,034 bpm*mmHg Termination Reason: Completed protocol Cardiac Symptoms: Shortness of breath Total Time: 1 min : 0 sec Rest Baldwin BP: 82 mmHg Peak Baldwin BP: 70 mmHg Total Dose: 0.4 mg Resting ECG Sinus rhythm. Stress ECG No ST changes. Arrhythmias None. Report Signatures
== END 2022-05-20 08:54 | disposition home or self-care (01) ==
PROVIDERS: PCP Family Medicine; Visit Provider Internal Medicine Cardiovascular Disease
DX: R06.09 Other forms of dyspnea (principal); I25.9 Chronic ischemic heart disease, unspecified
CPT/HCPCS: 78452; 93017; A9502; J2785

== ENCOUNTER 2022-05-27 01:54 | Day surgery (SDC) | payer OTHER, SELFPAY ==
[2022-05-26 14:48] VITALS: BMI 40.0
[2022-05-27] VITALS (7 sets, daily range): BP systolic 125–141; BP diastolic 66–95; PULSE 79–89; RESP 14–22; TEMP 36.8; O2SAT 94–96; BMI 39.9
[2022-05-27 07:42] LABS: Basophils Absolute Auto 0.1 K/mm3 (0.0-0.1); Basophils Percent Auto 0.6 % (0.2-1.2); Eosinophils Absolute Auto 0.2 K/mm3 (0-0.3); Eosinophils Percent Auto 1.7 % (0-4.4); Hematocrit 42.9 % (42.0-52.0); Hemoglobin 15.4 g/dL (14.0-18.0); Immature Granulocyte Absolute 0.03 K/mm3 (0.00-0.031); Immature Granulocyte Percent A 0.3 % (0-0.5); Lymphocytes Absolute Auto 2.41 K/mm3 (0.9-3.2); Lymphocytes Percent Auto 26.7 % (18.3-44.2); Mean Corpuscular HGB Conc 35.9 g/dl (32-36); Mean Corpuscular Hemoglobin 31.3 pg (26-34); Mean Corpuscular Volume 87.2 fl (80-100); Monocytes Absolute Auto 0.6 K/mm3 (0.1-0.6); Monocytes Percent Auto 6.9 % (2.6-8.5); Neutrophils Absolute Auto 5.8 K/mm3 (1.3-6.7); Neutrophils Percent Auto 63.8 % (45.5-73.1); Platelet Count Result 202 k/mm3 (150-375); Red Blood Count 4.92 M/mm3 (4.6-6.20); Red Cell Distribution Width 12.1 % (11.5-14.5)
[2022-05-27 07:53] LABS: Anion Gap 11 mmol/L (8-16); Blood Urea Nitrogen 19 mg/dL (9-20); Calcium 8.9 mg/dL (8.4-10.2); Carbon Dioxide 24 mmol/L (22-30); Chloride 99 mmol/L (98-107); Estimated CRCL calculation 131 ml/min; Estimated Glomerular Filt Rate > 60; Glucose 390 mg/dL (65-110); Potassium 4.4 mmol/L (3.4-5.0); Sodium 134 mmol/L (137-145)
[2022-05-27] MEDS: CLOPIDOGREL BISULFATE 300 MG TABLET 600 MG PO (08:35)
--- NOTE | 2022-05-27 08:43 | WPDMODSED ---
Moderate Sedation Note-Pt Data Patient Data Diagnosis: Abnormal stress test Present Complaint: Abnormal stress test Procedure to be performed/Plan: Coronary angiogram; left heart cath Allergies Allergy/AdvReac Type Severity Reaction Status Date / Time No Known Allergies Allergy Verified 05/27/22 08:03 Home Medications Medication Instructions Recorded Confirmed Type atorvastatin 80 mg tablet 80 mg PO DAILY 02/14/21 05/26/22 History Lantus Solostar U-100 Insulin 30 unit subcut DAILY 02/15/21 05/26/22 History Novolog Flexpen U-100 Insulin 32 unit subcut BID 02/15/21 05/26/22 History aspirin 81 mg tablet,delayed 81 mg PO QAM #30 tabs 02/20/21 05/26/22 Rx release buspirone 10 mg tablet 10 mg PO BID 11/10/21 05/26/22 History naproxen 500 mg tablet (Naprosyn) 500 mg PO BID PRN pain #20 tabs 12/07/21 05/26/22 Rx metformin 500 mg tablet,extended 1,000 mg PO BID #120 tabs 12/10/21 05/26/22 Rx release 24 hr furosemide 20 mg tablet See Rx Instructions .Route 01/26/22 05/26/22 Rx .COMPLEX #90 tabs metoprolol tartrate 100 mg tablet 100 mg PO BID #180 tabs 03/31/22 05/26/22 Rx omega 5-nnl-pmd-fish oil 300 1 cap PO BID #180 caps 05/19/22 05/26/22 Rx mg-1,000 mg capsule (Fish Oil) losartan 100 mg tablet 100 mg PO DAILY #90 tabs 05/21/22 05/26/22 Rx Current Medications: Active Medications Sodium Chloride (Normal Saline Iv) 500 mls @ 100 mls/hr IV CONT .Q5H DESTINI Sedation/Anesthesia: No previous sedation/anesthesia problems (including family history). [facility] Past Medical History Medical History Abnormal weight gain BMI 37.0-37.9, adult BMI 38.0-38.9,adult BMI 39.0-39.9,adult Coronary artery disease Dietary counseling and surveillance (03/10/16) Hiccups History of heart attack History of neck injury Hx of smoking Hyperlipidemia Hypertension Injury of median nerve at wrist and hand level of right arm, initial encounter Morbid obesity due to excess calories Obstructive sleep apnea on CPAP Pre-operative cardiovascular examination Type 2 diabetes mellitus Type 2 diabetes mellitus without complication, with terminal make up operator current use of insulin pump Surgical History Surgical History History of cardiac catheterization Stent x1. History of laparoscopic adjustable gastric banding With subsequent removal secondary to erosion. Family History Family History Father Family history of heart disease in male family member before age 55 Mother Chronic obstructive pulmonary disease Tobacco abuse Sibling No problems noted. Social History Social History Social History: The patient is and lives with his in [place]. He has 3 children. 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 Former smoker, quit about 23 years ago. He drinks 2 beers a week. No illicit substance use. He designates his , Smita, as his surrogate decision maker and he wishes to be a full code. 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 Gender identity (if verbalized by the patient): Male Sexual Orientation (if Verbalized by the Patient): Straight or Heterosexual Spiritual care concerns: No Agree to blood products: Yes Mod Sed Physical Exam Physical Exam Pre Procedural Exam: Normal: Appearance, Throat, Lungs, Heart
--- NOTE | 2022-05-27 08:48 | WPDHPUPDATE1 ---
History and Physical Update Update Date/Time: 05/27/22 08:48 History and Physical has been reviewed, including an updated exam of the patient. There are NO changes in the patient's condition. Risks, benefits, and alternatives have been discussed and questions answered. Patient agrees to proceed with procedure.
--- NOTE | 2022-05-27 13:24 | SUR.PHASEII ---
Patient TR band air removed per Protocol. Pt discharged with guaze and tegaderm to right radial area. Discharge complete.
--- NOTE | 2022-05-27 15:22 | WPDCARDPROC ---
Cardiac Cath Procedure Note Date of procedure:: 05/27/22 Performing physician:: CATHETERIZATION LABORATORY REPORT Procedure Date: 05/27/2022 Tacking Machine Operator: Molina Dunn M.D., [facility]? Referring Physician: Dr. Barbosa ? Anesthesia: Versed and Fentanyl were ordered and given in my presence at 09:06, procedure ended at 09:47. Supervision of nurse monitored moderate sedation with Versed and Fentanyl was provided for 41 minutes. Total of 2mg of Versed and 50mcg of Fentanyl were given Pre-op Diagnosis: Coronary artery disease Post-op Diagnosis: Obstructive disease of LAD and Diagonal. Moderate disease of OM Significant diffuse RCA in-stent restenosis Left ventricular end diastolic pressure of 30mmHg Procedure(s): Left heart catheterization with coronary angiography Access Site: Right radial artery Brief History and Clinical Indications: Patient is a 57-year-old male with a history of CAD s/p prior RCA PCI, hypertension, hyperlipidemia, type 2 diabetes mellitus, CATHERINE, morbid obesity who is referred for cardiac catheterization for abnormal stress test. All risks, benefits and alternatives to left heart catheterization with or without percutaneous coronary intervention was discussed at length with the patient. Risk of complications including but not limited to bleeding, infection, arrhythmia, stroke, worsening kidney function, blood loss, groin hematoma, limb loss, emergency coronary artery bypass grafting, and even were discussed with the patient and all questions were answered. The patient understood and wished to proceed. Time out called, patient name, date of , medical record number, allergies, procedure performed, identify Tacking Machine Operator, patient and staff member concurred with accurate data, procedure carried on. Findings: LEFT HEART CATHETERIZATION FINDINGS: 1. Left main: The left main coronary artery is widely patent without any significant obstructive disease. 2. Left anterior descending: The proximal LAD has a 50-60% narrowing at the level of the origin of the first diagonal vessel. Immediately distal to the takeoff of the first diagonal vessel, there is a focal 80% stenosis. Rest of the LAD has diffuse disease without focal obstruction. The first diagonal vessel is a bifurcating vessel with an upper and lower branch. Immediately after the bifurcation, the lower branch has an proximal focal 80-90% stenosis. 3. Left circumflex: The left circumflex is a small caliber vessel with diffuse disease. There is an OM vessel with a high proximal takeoff that has a 60-70% stenosis in its mid segment. Rest of the OM has mild diffuse disease. 4. Right coronary artery: The RCA is the dominant vessel. Stents are seen in the proximal to distal vessel. There is significant pressure dampening with engagement of the diagnostic catheter, which improves with catheter pulled back. The proximal-mid RCA has significant diffuse in-stent restenosis up to 90% in the mid portion of the vessel. No obstructive disease in the RPDA or RPLV. 5. Left ventricle: A. End-diastolic pressure 30 mmHg. B. LV gram deferred. C. No significant gradient across aortic valve on catheter pullback. Description of Procedure: Informed consent signed and placed in the chart. Patient transferred to catheter finisher and inspector room. Prepped and draped in usual sterile fashion. 2% lidocaine injected subcutaneously in right wrist area. 22-gauge venipuncture catheter used to access the right radial artery with the Seldinger technique. 6-FR slender sheath placed in right radial artery. Cocktail of Nitroglycerine and Cardene was given intraarterial through the sheath. Glidewire wire advanced under fluoroscopy 5F Tig 4 diagnostic catheter engaged Left Main Coronary Artery. 5F JR4 diagnostic catheter engaged Right Coronary Artery Multiple orthogonal angiogram obtained and reviewed 5F Tig 4 diagnostic catheter crossed aortic valve to obtain LVEDP, LV angiogram deferred. Hemostasis was
== END 2022-05-27 13:25 | disposition home or self-care (01) ==
PROVIDERS: PCP Family Medicine; Visit Provider Internal Medicine
PROC: 4A023N7 Measurement of Cardiac Sampling and Pressure, Left Heart, Percutaneous Approach (ICD-10-PCS; CPT 93452; principal; 2022-05-27 08:30)
DX: I25.10 Atherosclerotic heart disease of native coronary artery without angina pectoris (principal); T82.855A Stenosis of coronary artery stent, initial encounter; Y83.8 Other surgical procedures as the cause of abnormal reaction of the patient, or of later complication, without mention of misadventure at the time of the procedure; R94.39 Abnormal result of other cardiovascular function study; I25.2 Old myocardial infarction; I10 Essential (primary) hypertension; E78.5 Hyperlipidemia, unspecified; E11.9 Type 2 diabetes mellitus without complications; G47.33 Obstructive sleep apnea (adult) (pediatric); Z98.84 Bariatric surgery status; Z87.891 Personal history of nicotine dependence; Z79.4 Long term (current) use of insulin; Z79.82 Long term (current) use of aspirin; Z79.84 Long term (current) use of oral hypoglycemic drugs
CPT/HCPCS: 36415; 80048; 85025; 93458; A9270; C1769; C1887; C1894; J0461; J1644; J2250; J3010; J7030

== ENCOUNTER 2022-08-10 09:25 | Outpatient (CLI) | payer OTHER, SELFPAY ==
[2022-08-10 10:30] LABS: Alanine Aminotransferase 28 U/L (6-50); Albumin Level 4.7 g/dL (3.5-5.1); Alkaline Phosphatase 82 U/L (38-126); Anion Gap 10 mmol/L (8-16); Aspartate Amino Transferase 26 U/L (17-59); Bilirubin,Total 0.3 mg/dL (0.2-1.3); Blood Urea Nitrogen 16 mg/dL (9-20); Calcium 9.1 mg/dL (8.4-10.2); Carbon Dioxide 25 mmol/L (22-30); Chloride 100 mmol/L (98-107); Cholesterol 106 mg/dL (0-200); Estimated Glomerular Filt Rate > 60; Glucose 215 mg/dL (65-110); HDL Direct 32 mg/dL; Potassium 4.3 mmol/L (3.4-5.0); Sodium 135 mmol/L (137-145); Triglycerides 121 mg/dL (<150)
[2022-08-10 10:41] LABS: LDL Cholesterol Direct 47 mg/dL
== END 2022-08-10 09:26 | disposition home or self-care (01) ==
LOC: ANHLAB 09:27
PROVIDERS: PCP Family Medicine; Visit Provider Internal Medicine Cardiovascular Disease
DX: E78.5 Hyperlipidemia, unspecified (principal)
CPT/HCPCS: 36415; 80053; 80061

== ENCOUNTER 2023-01-22 11:14 | Outpatient (CLI) | payer OTHER, SELFPAY ==
[2023-01-22 12:03] LABS: Hemoglobin A1C 8.2 % (<5.7)
== END 2023-01-22 11:15 | disposition home or self-care (01) ==
LOC: ANHLAB 11:15
PROVIDERS: PCP Family Medicine; Visit Provider Internal Medicine Cardiovascular Disease
DX: E11.65 Type 2 diabetes mellitus with hyperglycemia (principal)
CPT/HCPCS: 36415; 83036

== ENCOUNTER 2023-02-03 12:04 | Outpatient (CLI) | payer OTHER, SELFPAY ==
--- NOTE | ~2023-02-03 | US_ITS ---
EXAMINATION: US soft tissue UE RT DATE: 02/03/2023 12:25 INDICATION: Right upper arm bump TECHNIQUE: Multiple grayscale and Doppler ultrasound images of the region of concern at the right upp er arm were obtained. COMPARISON: None FINDINGS: 1.5 x 1.4 x 0.5 cm ovoid region of increased echogenicity in the subcutaneous fat at the region of co ncern which is without a clearly defined separation from the surrounding subcutaneous fat. No other a bnormal masses or fluid collections identified. IMPRESSION: 1. 0.5 x 1.4 x 0.5 cm ovoid hypoechoic region in the subcutaneous fat most likely infectious/inflamma tory in etiology versus less likely a lipoma. Reviewed, dictated and finalized at location B. IMPRESSION: 1. 0.5 x 1.4 x 0.5 cm ovoid hypoechoic region in the subcutaneous fat most like ly infectious/inflammatory in etiology versus less likely a lipoma.
== END 2023-02-03 12:05 | disposition home or self-care (01) ==
PROVIDERS: PCP Family Medicine; Visit Provider Physician Assistant Medical
DX: M79.89 Other specified soft tissue disorders (principal)
CPT/HCPCS: 76882

== ENCOUNTER 2024-07-30 07:40 | Emergency (ER) | payer OTHER, SELFPAY ==
--- NOTE | ~2024-07-30 | US_ITS ---
EXAMINATION: US venous doppler [facility] DATE: 07/30/2024 08:44 INDICATION: Right lower limb pain, swelling and erythema. TECHNIQUE: Grayscale ultrasound images without and with compression and Doppler ultrasound images of the left lower extremity veins were obtained. COMPARISON: None. FINDINGS: The visualized portions of left common femoral vein, profunda (deep) femoral vein, femoral vein, popl iteal vein, peroneal veins, posterior tibial veins, gastrocnemius vein and greater saphenous vein out flow are patent. IMPRESSION: 1. No deep venous thrombosis in the left lower limb. Reviewed, dictated and finalized at location A. 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
[2024-07-30 07:53] VITALS: BP 174/79; PULSE 106; RESP 16; TEMP 36.6; O2SAT 96
[2024-07-30 08:27] LABS: Basophils Percent Auto 0.3 % (0.2-1.2); Eosinophils Absolute Auto 0.1 K/mm3 (0-0.3); Hematocrit 41.4 % (42.0-52.0); Hemoglobin 14.7 g/dL (14.0-18.0); Immature Granulocyte Absolute 0.03 K/mm3 (0.00-0.031); Immature Granulocyte Percent A 0.3 % (0-0.5); Lymphocytes Absolute Auto 2.55 K/mm3 (0.9-3.2); Lymphocytes Percent Auto 26.6 % (18.3-44.2); Mean Corpuscular HGB Conc 35.5 g/dl (32-36); Mean Corpuscular Hemoglobin 31.2 pg (26-34); Mean Corpuscular Volume 87.9 fl (80-100); Mean Platelet Volume 9.6 fl (7.4-10.4); Monocytes Percent Auto 10.5 % (2.6-8.5); Neutrophils Absolute Auto 5.9 K/mm3 (1.3-6.7); Neutrophils Percent Auto 61.3 % (45.5-73.1); Platelet Count Result 193 k/mm3 (150-375); Red Blood Count 4.71 M/mm3 (4.6-6.20); Red Cell Distribution Width 12.7 % (11.5-14.5); White Blood Count 9.6 K/mm3 (4.5-10.0)
[2024-07-30 08:34] LABS: Anion Gap 9 mmol/L (4-12); Blood Urea Nitrogen 15 mg/dL (9-20); Calcium 8.9 mg/dL (8.4-10.2); Carbon Dioxide 25 mmol/L (22-30); Chloride 100 mmol/L (98-107); Estimated CRCL calculation 141 ml/min; Estimated Glomerular Filt Rate > 60; Glucose 323 mg/dL (65-110); Sodium 134 mmol/L (137-145)
[2024-07-30 08:43] LABS: INR 0.9; Prothrombin Time 12.9 Seconds (11.1-14.7)
[2024-07-30 08:44] LABS: Partial Thromboplastin Time 27.3 Seconds (22.3-36.8)
--- NOTE | 2024-07-30 09:32 | ED.SKABFB ---
HPI - Skin/Abscess/Foreign Bdy General Chief complaint: Skin/Abscess/Foreign Body Stated complaint: L leg cellulitis and foot ulcer Time Seen by Provider: 07/30/24 07:45 History of Present Illness HPI narrative: Patient is a 59-year-old male who presents ER with redness left leg. It is in gómez and calf. Ongoing for 2 days. Mild discomfort to touch. No fevers or chills or sweats. Has a chronic pressure ulcer to the left foot that is not causing him issue right now. He sees wound care at the [place] and last saw them 2 weeks ago. No chest pain or shortness of breath. No fevers or chills or sweats. Related Data Home Medications Medication Instructions Recorded Confirmed atorvastatin 80 mg tablet 80 mg PO DAILY 02/14/21 10/01/23 Lantus Solostar U-100 Insulin 30 unit subcut DAILY 02/15/21 10/01/23 Novolog Flexpen U-100 Insulin 32 unit subcut BID 02/15/21 10/01/23 buspirone 10 mg tablet 10 mg PO BID 11/10/21 10/01/23 Allergies Allergy/AdvReac Type Severity Reaction Status Date / Time No Known Allergies Allergy Verified 07/30/24 07:40 Review of Systems Review of Systems: All systems reviewed & are unremarkable except as noted in HPI and below Constitutional: Constitutional: Reports no additional constitutional complaints Cardiovascular: Cardiovascular: Reports no additional cardiovascular complaints Respiratory: Respiratory: Reports no additional respiratory complaints Gastrointestinal: Gastrointestinal: Reports no additional gastrointestinal complaints Integumentary/Breasts: Skin/Breast: Reports erythema, Reports rash and Reports skin ulcer PMFSH Past Medical History Medical History Abnormal weight gain BMI 37.0-37.9, adult BMI 38.0-38.9,adult BMI 39.0-39.9,adult Coronary artery disease Dietary counseling and surveillance (03/10/16) Hiccups History of heart attack History of neck injury Hx of smoking Hyperlipidemia Hypertension Injury of median nerve at wrist and hand level of right arm, initial encounter Morbid obesity due to excess calories Obstructive sleep apnea on CPAP Pre-operative cardiovascular examination Type 2 diabetes mellitus Type 2 diabetes mellitus without complication, with skilled nursing current use of insulin pump Surgical History Surgical History History of cardiac catheterization Stent x1. History of laparoscopic adjustable gastric banding With subsequent removal secondary to erosion. Family History Family History Father Family history of heart disease in male family member before age 55 Mother Chronic obstructive pulmonary disease Tobacco abuse Sibling No problems noted. Social History Social History Social History: The patient is and lives with his in [place]. He has 3 children. 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 Former smoker, quit about 23 years ago. He drinks 2 beers a week. No illicit substance use. He designates his , Smita, as his surrogate decision maker and he wishes to be a full code. Smoking packs per day: 2 Smoking cigarettes per day: 40.0 Years smoked: 20 Smoking pack-years: 40.00 Smoking status: Former smoker Tobacco type: cigarettes Second hand tobacco smoke exposure: Yes Smoking end date: 05/26/96 Alcohol intake: current Drinks per week: 6 Substance use: current Substance use type: marijuana Last use: 02/12/21 Do You Feel Safe in your Home?: Yes Lack of Transportation: No Lack of Food: Never True Current Housing: I Have Housing Concerned About Future Housing: No Difficulty Paying Gas/Electric Bills: No Difficulty Paying for Meds: No Currently Unemployed: No Education: Associate Degree Difficulty w/ Childcare or Family Care: No Living arrangements: with family Additional living arrangements comments: Occupation/Education: occupation 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 Gender identity (if verbalized by the patient): Male Sexual Orientation (if Verbalized by the Patient): Straight or Heterosexual Spiritual care concerns: No Agree to blood products: Yes Exam Narrative: GENERAL: Well-appearing, well-nourished, and in no acute distress. HEAD: Normocephalic, atraumatic. ENT: Mucous membranes moist. NECK: Supple. CHEST: Clear to auscultation. No respiratory distress. HEART: Regular rate and rhythm. Normal peripheral pulses. EXTREMITIES: Normal range of motion. No edema. SKIN: Warm, dry . Cellulitis of the left calf and gómez. Chronic ulceration left foot at the 3rd MTP without purulent drainage or foul odor. No surrounding cellulitis. NEURO: Alert and oriented x3. PSYCH: Normal mood and affect. Course Course Emergency Course: Discharge home with treatment for cellulitis. Recommend follow-up with PCP and wound care. Vital Signs Vital signs: Vital Signs Temperature 97.8 F 07/30/24 07:53 Pulse Rate 106 H 07/30/24 07:53 Respiratory Rate 16 07/30/24 07:53 Blood Pressure 174/79 H 07/30/24 07:53 Pulse Oximetry 96 07/30/24 07:53 Temperature 97.8 F 07/30/24 07:53 Pulse Rate 106 H 07/30/24 07:53 Respiratory Rate 16 07/30/24 07:53 Blood Pressure 174/79 H 07/30/24 07:53 Pulse Oximetry 96 07/30/24 07:53 MDM - Skin/Abscess/Foreign Bdy Lab Data 07/30/24 08:19 07/30/24 08:19 Labs: Lab Results 07/30/24 Range/Units 08:19 WBC 9.6 (4.5-10.0) K/mm3 RBC 4.71 (4.6-6.20) M/mm3 Hgb 14.7 (14.0-18.0) g/dL Hct 41.4 L (42.0-52.0) % MCV 87.9 (80-100) fl MCH 31.2 (26-34) pg MCHC 35.5 (32-36) g/dl RDW 12.7 (11.5-14.5) % Plt Count 193 (150-375) k/mm3 MPV 9.6 (7.4-10.4) fl Immature Gran % (Auto) 0.3 (0-0.5) % Neut % (Auto) 61.3 (45.5-73.1) % Lymph % (Auto) 26.6 (18.3-44.2) % Dixie % (Auto) 10.5 H (2.6-8.5) % Eos % (Auto) 1.0 (0-4.4) % Baso % (Auto) 0.3 (0.2-1.2) % Lymph # (Auto) 2.55 (0.9-3.2) K/mm3 Dixie # (Auto) 1.0 H (0.1-0.6) K/mm3 Eos # (Auto) 0.1 (0-0.3) K/mm3 Baso # (Auto) 0.0 (0.0-0.1) K/mm3 Abs Immat Gran (auto) 0.03 (0.00-0.031) K/mm3 Absolute Neuts (auto) 5.9 (1.3-6.7) K/mm3 Absolute Nucleated RBC 0.000 (0.0-0.012) K/mm3 Nucleated RBC % 0.0 (0.0-0.2) % PT 12.9 (11.1-14.7) Seconds INR 0.9 APTT 27.3 (22.3-36.8) Seconds Sodium 134 L (137-145) mmol/L Potassium 4.0 (3.4-5.0) mmol/L Chloride 100 (98-107) mmol/L Carbon Dioxide 25 (22-30) mmol/L Anion Gap 9 (4-12) mmol/L BUN 15 (9-20) mg/dL Creatinine 0.50 L (0.7-1.3) mg/dL Estim Creat Clear Calc 141 ml/min Estimated GFR > 60 (59 - ) Glucose 323 H (65-110) mg/dL Calcium 8.9 (8.4-10.2) mg/dL Imaging Data Radiologist's impression: ITS Impressions Venous Doppler Study 07/30/24 08:54 IMPRESSION: 1. No deep venous thrombosis in the left lower limb. Discharge Plan Discharge Clinical Impression: Cellulitis Patient Disposition: Home, Self-Care Condition: Stable Instructions: Antibiotic Form, Cellulitis (ED) Additional Instructions: return the ER if you have worsening redness, have fever over 100.4? F, or you have additional concerns. Prescriptions: New cefuroxime axetil 500 mg tablet 500 mg PO BID Qty: 20 0RF No Action buspirone 10 mg tablet 10 mg PO BID metformin 500 mg tablet extended release 24 hr 1,000 mg PO BID Qty: 120 2RF sildenafil [Viagra] 25 mg tablet 25 mg PO DAILY PRN (Reason: sexual activity) Qty: 30 0RF Rx Instructions: administer 30 minutes to 4 hours before activity atorvastatin 80 mg tablet 80 mg PO DAILY Lantus Solostar U-100 Insulin auto-injector 30 unit subcut DAILY Rx Instructions: Takes in PM 10-15min before HS Novolog Flexpen U-100 Insulin auto-injector 32 unit subcut BID Rx Instructions: BID (Breakfast and Dinner) naproxen [Naprosyn] 500 mg tablet 500 mg PO BID PRN (Reason: pain) Qty: 20 0RF furosemide 20 mg tablet See Rx Instructions .ROUTE .COMPLEX Qty: 90 0RF Dose Instruction: TAKE 1 TABLET BY MOUTH EVERY MORNING Rx Instructions: TAKE 1 TABLET BY MOUTH EVERY MORNING omega 4-xkh-onl-fish oil [Fish Oil] 300-1,000 mg capsule 1 cap PO BID Qty: 180 2RF metoprolol tartrate 100 mg tablet 50 mg PO BID Qty: 180 0RF Rx Instructions: Take one tablet in the morning and 1/2 tablet in evening. losartan 100 mg tablet See Rx Instructions .ROUTE .COMPLEX Qty: 90 2RF Dose Instruction: TAKE 1 TABLET BY MOUTH DAILY Rx Instructions: TAKE 1 TABLET BY MOUTH DAILY Follow-up/Referrals: Ga Tanner MD [Primary Care Provider] - 1 Week
== END 2024-07-30 10:04 | disposition home or self-care (01) ==
PROVIDERS: Emergency Provider Emergency Medicine; PCP Family Medicine
DX: L03.116 Cellulitis of left lower limb (principal); I25.10 Atherosclerotic heart disease of native coronary artery without angina pectoris; I25.2 Old myocardial infarction; I10 Essential (primary) hypertension; E11.9 Type 2 diabetes mellitus without complications; E78.5 Hyperlipidemia, unspecified; E66.01 Morbid (severe) obesity due to excess calories; Z68.35 Body mass index [BMI] 35.0-35.9, adult; G47.33 Obstructive sleep apnea (adult) (pediatric); L89.899 Pressure ulcer of other site, unspecified stage; Z87.891 Personal history of nicotine dependence; Z79.899 Other long term (current) drug therapy; Z79.4 Long term (current) use of insulin; Z79.84 Long term (current) use of oral hypoglycemic drugs
CPT/HCPCS: 36415; 80048; 85025; 85610; 85730; 93971; 99284

== ENCOUNTER 2024-12-16 13:12 | Emergency (ER) | payer OTHER, SELFPAY ==
--- NOTE | ~2024-12-16 | US_ITS ---
Limited ABDOMINAL ULTRASOUND (Doppler ultrasound interrogation techniques used as needed for this exa m.) Ordering provider: Kate Paz MD History: . sludge/stones in GB on CT . Comparison: None. FINDINGS: PANCREAS: Not well visualized. PORTAL VEIN: Hepatopedal flow demonstrated. LIVER: Normal size and echotexture. No focal hepatic lesions or perihepatic fluid collections are ayde ntified. BILIARY DUCTS: No intra or extrahepatic biliary dilation. Common bile duct measures 3.1 mm in diamete r which is normal for patient's age. GALLBLADDER: Gallbladder sludge is noted. No stones, gallbladder wall thickening or pericholecystic f luid. The wall measures 1.6 mm. Negative sonographic Villegas's sign. IVC: Patent. FREE FLUID: None visualized within the upper abdomen. IMPRESSION: Gallbladder sludge. Otherwise, normal limited abdominal ultrasound. Reviewed, dictated and finalized at location A.
--- NOTE | ~2024-12-16 | CT_ITS ---
CT abdomen pelvis w con Ordering provider: Kate Paz MD History: 59 years Male with . pain LT mons pubis, worse standing; suspect hernia . Comparison: February 16, 2021 Technique: CT abdomen and pelvis with IV and without oral contrast. Automated exposure control and it erative reconstruction technique were employed. The dose-length product was 926.76 mGy-cm. 100 mL Omn ipaque 350 was given IV. Findings: VISUALIZED LOWER CHEST: Normal. UPPER ABDOMINAL ORGANS: Liver: Normal. Gallbladder: Minimal sludge, or possible tiny stones are seen in the posterior area of the gallbladde r near to the neck of the gallbladder. Spleen: Normal. Stomach/duodenum: Normal. Pancreas: Normal. Adrenals: Normal. Kidneys: A cyst is seen in the right kidney upper pole measuring 2.6 cm. PELVIC ORGANS: The bladder shows slightly thickened wall anteriorly. Clinical evaluation advised. Left iliac lymph node seen measuring 1.5 cm. BOWEL AND MESENTERY: Colon: No evidence of diverticulitis. Normal appendix. Small Bowel: Normal. No obstruction. Peritoneum/mesentery: No free air or free fluid. No mesenteric lymphadenopathy. Mesenteric lymph node is seen measuring 1.2 cm. RETROPERITONEUM: Mild atheromatous disease of the abdominal aorta. No retroperitoneal lymphadenopat hy. MUSCULOSKELETAL: Superficial soft tissues: The superficial soft tissues are normal. Bones: Age appropriate degenerative changes of the spine. IMPRESSION: 1. No evidence of appendicitis, diverticulitis or intestinal obstruction. 2. Sludge or tiny stones in the gallbladder. Ultrasound evaluation advised. Reviewed, dictated and finalized at location A.
--- OUTSIDE RECORDS SUMMARY | 2024-12-16 13:15 | XMS_ITS | Clinical Summary ---
Author Organization [facility] Address [address] [place] [address] Care Team Providers Care Inpatient Coder Name Role Phone Unavailable Primary Care Provider Unavailabl e Source Comments [facility],non-owned Affiliates and Associated Physician Practices is amultiple site organization consisting of ambulatory clinics and hospital sitesin [place], [place], [place] and [place]. This disclosure is being madepursuant to the Care Everywhere program and may not contain all information available regarding this patient. Last updated 18.Empress[employer] Allergies No known active allergies Medications * Be aware that medications may not be up to date on this document. Alwaysverify current medications with the patient. aspirin 81 MG tablet Take 81 mg by mouth once daily. Took a 325 mg at 2200 Active metoprolol tartrate (LOPRESSOR) 100 MG tablet TAKE ONE-HALF TABLET BY MOUTH TWICE A DAY FOR HEART/BLOOD PRESSURE. TAKE WITH OR IMMEDIATELY FOLLOWING FOOD. 1 Active prazosin (MINIPRESS) 2 MG capsule TAKE 1 CAPSULE BY MOUTH AT BEDTIME MAY CAUSE DIZZINESS OR DROWSINESS. 0 Active metFORMIN ER 24hr (GLUCOPHAGE XR) 500 MG tablet TAKE TWO TABLETS BY MOUTH TWICE A DAY WITH MEALS FOR BLOOD SUGAR CONTROL. TAKE WITH FOOD. AVOID ALCOHOL. DISCONTINUE BEFORE GETTING XRAY DYE. 1 Active atorvastatin (LIPITOR) 80 MG tablet TAKE ONE TABLET BY MOUTH EVERY EVENING FOR CHOLESTEROL. REPORT ANY UNEXPLAINED MUSCLE PAIN/WEAKNESS TO PROVIDER. 0 Active insulin glargine (LANTUS) pen INJECT 65 UNITS UNDER THE SKIN ONCE A DAY FOR BLOOD SUGAR CONTROL. ADMINISTER AT SAME TIME EACH DAY DIRECTED. DISCARD ANY OPEN CARTRIDGE AFTER 28 DAYS. 1 Active insulin aspart (NOVOLOG) pen INJECT 25 UNITS UNDER THE SKIN THREE TIMES A DAY BEFORE MEALS FOR BLOOD SUGAR CONTROL. ADMINISTER 10 MINUTES BEFORE FOOD DIRECTED. REFRIGERATE UN-OPENED PENS. DISCARD CARTRIDGE 28 DAYS AFTER OPENING. 1 Active LOSARTAN POTASSIUM PO Take by mouth once daily Active hydrOXYzine HCl (Atarax) 50 MG tablet Take 50 mg by mouth once daily 2 Active naproxen (Naprosyn) 500 MG tablet Take 500 mg by mouth 2 times daily as needed For pain. 2 Active Acetaminophen (Tylenol) 325 MG CAPS Active Active Problems Problem Noted Date Diagnosed Date Morbid obesity 06/09/2010 Dyspnea on exertion 06/09/2010 Pre-op testing 06/09/2010 Hypertension 06/09/2010 S/P coronary angioplasty 06/09/2010 Diabetes mellitus type I 06/09/2010 Hyperlipidemia 06/09/2010 CATHERINE (obstructive sleep apnea) 06/09/2010 Generalized anxiety disorder 06/09/2010 ADD (attention deficit disorder) 06/09/2010 PTSD (post-traumatic stress disorder) 06/09/2010 Family History Medical History Relation Name Comments CAD (Coronary Artery Disease) Father Obesity Father Relation Name Status Comments Father Social History Tobacco Use Types Packs/Day Years Used Date Smoking Tobacco: Former Cigarettes 1 20 0 04/08/1977 - 04/08/1997 Smokeless Tobacco: Never Comments:quit 12 yrs ago Alcohol Use Standard Drinks/Week Comments Yes 10 (1 standard drink = 0.6 oz pu re alcohol) Sex and Gender Information Value Date Recorded Sex Assigned at Not on file 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 Gender Identity Not on file Sexual Orientation Not on file Last Filed Vital Signs Vital Sign Reading Time Taken Comments Blood Pressure 144/83 04/10/2022 9:42 AM CDT Pulse 90 04/10/2022 9:42 AM CDT Temperature 36.1 C (96.9 F) 04/10/2022 9:42 AM CDT Respiratory Rate 20 06/13/2021 1:14 PM CDT Oxygen Saturation 95% 04/10/2022 9:42 AM CDT Inhaled Oxygen Concentration - - Weight 109 kg (240 lb 3.2 oz) 04/10/2022 9:42 AM CDT Height 165.1 cm (5' 5 ) 04/10/2022 9:42 AM CDT Body Mass Index 39.97 04/10/2022 9:42 AM CDT Plan of Treatment Health Maintenance Due Date Last Done Comments COLOGUARD (AGES 45-75) - COLON CA SCREENING 1965 COLON MONITORING 1965 COLONOSCOPY - COLON CA SCREENING 1965 CT COLONOGRAPHY - COLON CA SCREENING 1965 Colorectal Cancer Screening 1965 FIT - COLON CA SCREENING 1965 FLEX SIG - COLON CA SCREENING 1965 HIV SCREENING 1980 HEPATITIS C SCREENING 04/21/1983 DTAP/TDAP/TD VACCINES (1 - Tdap) 1984 HEPATITIS B VACCINE (1 of 3 - 19+ 3-dose series) 1984 PNEUMOCOCCAL VACCINE 50+ (1 of 2 - PCV) 1984 PNEUMOCOCCAL VACCINE (1 of 2 - PCV) 1984 ZOSTER VACCINE (1 of 2) 2015 DIABETES RETINOPATHY SCREENING 04/08/2021 DIABETES-FOOT EXAM WITH MONOFILAMENT 04/08/2021 DIABETES-HGB A1C 10/03/2022 07/03/2022, 03/04/2022 DIABETES-SERUM CREATININE 07/07/20232021, 07/06/2022, 07/05/2022, Additional history exists COVID-19 VACCINE ( season) 2024 11/06/2020, 10/09/2020 DEPRESSION SCREENING 09/06/2024 DIABETES - URINE PROTEIN SCREENING 09/06/2024 INFLUENZA VACCINE (Season Ended) 2025 07/01/2005, 08/08/2004 HIB VACCINE Aged Out No longer eligi ble based on patient's age to complete this topic HPV VACCINE Aged Out No longer eligi ble based on patient's age to complete this topic MENINGOCOCCAL (Group B) VACCINE SHARED DECISION-MAKING Aged Out No longer eligible based on patient's age to complete this topic MENINGOCOCCAL GROUPS A/C/Y/W VACCINE Aged Out No longer eligible based on patient's age to complete this topic Procedures Procedure Name Priority Date/Time Associated Diagnosis Comments HEMOGLOBIN A1C Routine 03/04/2022 12:31 PM CDT Preop testing Morbid obesity Uncontrolled type 2 diabetes mellitus with hyperglycemia COMPREHENSIVE METABOLIC PANEL STAT 03/05/2012 11:00 AM CDT from Last 3 Months or Most Recently Relevant to Health Maintenance Results * (ABNORMAL) HEMOGLOBIN A1C (HgbA1C) (03/04/2022 12:31 PM CDT) Hemoglobin A1c 11.6(H) 4.8 - 5.6 % [facility] ACCOUNT BILL Comment: . Prediabetes: 5.7 - 6.4 Diabetes: >6.4 Glycemic control for adults with diabetes: <7.0 Blood BLOOD SPECIMEN / Unknown 03/04/2022 12:31 PM CDT 03/04/2022 Narrative Resulting Agency Comment Lab Testing performed at: [facility] [place] [address] [phone] us Wiliam Barbosa MD LAB - CHEMISTRY ORDERABLES F inal Result [facility] ACCOUNT BILL [address] [place] [address] * (ABNORMAL) COMPREHENSIVE METABOLIC PANEL (03/05/2012 11:00 AM CDT) Glucose 230(H) 75 - 110 mg/dl [facility] BUN 7 7 - 21 mg/dl [facility] Creatinine 0.77 0.50 - 1.30 mg/dl [facility] Sodium 138 136 - 145 mmol/L [facility] Potassium 3.8 3.5 - 5.1 mmol/L [facility] Chloride 102 98 - 107 mmol/L [facility] CO2 25 22 - 30 mmol/L [facility] Calcium 8.7 8.5 - 10.1 mg/dl [facility] Bilirubin Total 0.4 0.2 - 1.0 mg/dl [facility] Alkaline Phosphatase 74 38 - 126 U/L [facility] AST 12 5 - 40 U/L [facility] ALT 35 12 - 78 U/L [facility] Protein Total 7.8 6.4 - 8.2 gm/dl [facility] Albumin 3.9 3.4 - 5.0 gm/dl [facility] eGFR By MDRD >60 >60 [facility] Blood specimen (specimen) BLOOD SPECIMEN / Unknown 03/05/2012 11:00 AM CDT 03/05/2012 11:55 AM CDT Walter Alcazar MD LAB - CHEMISTRY ORDERABLES F inal Result [facility] [address] [place] [address] from Last 3 Months or Most Recently Relevant to Health Maintenance Insurance 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
--- OUTSIDE RECORDS SUMMARY | 2024-12-16 13:15 | XMS_ITS | Clinical Summary ---
Author Organization [facility] Address [address] [place] [address] Phone Care Team Providers Care Education Program Associate Name Role Phone Ga Tanner MD Primary Care Provider [phone] Allergies No known active allergies Medications Aspirin 81 MG Tablet Take 650 mg by mouth daily. Active INSULIN GLARGINE SCIndications:s liding scale by Subcutaneous route. Indications: sliding scale Active Insulin Glargine (LANTUS SC) 30 Units/day by Subcutaneous route nightly. Active TRAMADOL HCL PO Take by mouth. Active atenolol (TENORMIN) 50 MG Tablet Take 50 mg by mouth daily. 6 Active HYDROcodone-mago taminophen (NORCO) 5-325 MG Tablet Take 1-2 Tabs by mouth every 4 hours as needed for Pain. 20 Tab 0 6 Active busPIRone (BUSPAR) 15 MG Tablet Take 15 mg by mouth 3 times daily. Active ALPRAZolam (XANAX) 1 MG Tablet Take 1 mg by mouth daily. Active cyclobenzaprine (FLEXERIL) 5 MG Tablet Take 1 Tablet by mouth 3 times daily as needed for Muscle spasms. 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 Gender Identity Not on file Sexual Orientation Not on file Last Filed Vital Signs Vital Sign Reading Time Taken Comments Blood Pressure 149/83 09/10/2023 12:00 AM COARSE WIRE DRAWER Pulse 91 09/10/2023 12:15 AM COARSE WIRE DRAWER Temperature 35.8 C (96.5 F) 09/09/2023 11:53 PM COARSE WIRE DRAWER Respiratory Rate 18 09/09/2023 11:53 PM COARSE WIRE DRAWER Oxygen Saturation 97% 09/10/2023 12:15 AM COARSE WIRE DRAWER Inhaled Oxygen Concentration - - Weight 99.8 kg (220 lb) 09/09/2023 11:53 PM COARSE WIRE DRAWER Height 165.1 cm (5' 5 ) 09/09/2023 11:53 PM COARSE WIRE DRAWER Body Mass Index 36.61 09/09/2023 11:53 PM COARSE WIRE DRAWER Plan of Treatment Health Maintenance Due Date Last Done Comments Hepatitis C Virus (HCV) Screening 1965 Colonoscopy 2010 Colorectal Cancer Screening 2010 Cologuard 2015 Immunochemical Fecal Occult Blood 2015 Pneumococcal Immunization (50+ years) (2 of 2 - PCV) 07/29/2019 07/29/2018 PSA Discussion 2020 Influenza Immunization (#1) 2024 07/01/2005, 1 10/09/2003 SARS-COV-2 Immunization ( season) 2024 05/17/2023, 08/15/2021, 11/06/2020, Additional history exists Respiratory Syncytial Virus (RSV) Immunization (Adult) (1 - 1-dose 75+ series) 2040 Hepatitis B Immunization Completed 005, 12/20/2003, 06/19/2003, Additional history exists DTaP/Tdap/Td Immunization Discontinued 12/22/2016, 01/2006 TdaP Immunization Completed 12/22/2016, 09/10/2005 Pneumococcal Immunization Combined Discontinued 07/29/2018 Zoster Immunization Completed 05/06/2021, Meningococcal Immunization (ACWY) Aged Out No longer eligible based on patient's age to complete this topic Rotavirus Immunization Aged Out No lo nger eligible based on patient's age to complete this topic Insurance [facility] OA [facility] Care Teams Education Program Associate Relationship Specialty Start Date End Date Ga Tanner MD [address] [address] PCP - General Family Medicine 09/02/15
[2024-12-16 13:19] VITALS: BP 162/72; PULSE 103; RESP 20; TEMP 36.6; O2SAT 100
--- NOTE | 2024-12-16 13:37 | ED_ITS ---
HPI - Extremity Problem General Chief complaint: Extremity Problem,Nontraumatic Stated complaint: L HIP/GROIN PAIN FOR WEEKS Time Seen by Provider: 12/16/24 13:19 Source: patient Mode of arrival: ambulatory Limitations: no limitations History of Present Illness HPI Narrative: Patient presents with was was initially reported as left hip/groin pain for weeks. He points to his left mons pubis on exam. He reports having a low abdominal wall hernia. 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 He tried Tylenol at home. Wanted to get it checked out today because setting out to [address] soon. No injury or trauma. He particularly notices symptoms when he walks/stands or is at the gym. He notes he is dealing with a yeast infection in bilateral inguinal creases for which he is on an antifungal. No scrotal/penile pain. No hematuria/dysuria/urgency/frequency. No bowel/bladder incontinence. No paresthesias/saddle anesthesia. No penile discharge. No history STIs. No rectal pain. He is inquiring about what he can do about the ingrown hairs / shaving bumps. Related Data Home Medications ?Medication ?Instructions ?Recorded ?Confirmed ?Last Taken ?Type atorvastatin 80 mg tablet 80 mg PO DAILY 02/14/21 10/01/23 05/26/22 History Lantus Solostar U-100 Insulin 30 unit subcut DAILY 02/15/21 10/01/23 05/26/22 History Novolog Flexpen U-100 Insulin 32 unit subcut BID 02/15/21 10/01/23 05/26/22 History buspirone 10 mg tablet 10 mg PO BID 11/10/21 10/01/23 Unknown History Allergies Allergy/AdvReac Type Severity Reaction Status Date / Time No Known Allergies Allergy Verified 12/16/24 13:13 [facility] Past Medical History Medical History BMI 39.0-39.9,adult BMI 38.0-38.9,adult BMI 37.0-37.9, adult Abnormal weight gain Dietary counseling and surveillance (03/10/16) History of heart attack History of neck injury Hx of smoking 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 History of cardiac catheterization Stent x1. Family History Family History Father Family history of heart disease in male family member before age 55 Mother Chronic obstructive pulmonary disease Tobacco abuse Sibling No problems noted. Social History Social History Social History: The patient is and lives with his in [place]. He has 3 children. 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 Former smoker, quit about 23 years ago. He drinks 2 beers a week. No illicit substance use. He designates his , Smita, as his surrogate decision maker and he wishes to be a full code. Smoking packs per day: 2 Smoking cigarettes per day: 40.0 Years smoked: 20 Smoking pack-years: 40.00 Smoking status: Former smoker Tobacco type: cigarettes Second hand tobacco smoke exposure: Yes Smoking end date: 05/26/96 Alcohol intake: current Drinks per week: 6 Substance use: current Substance use type: marijuana Last use: 02/12/21 Do You Feel Safe in your Home?: Yes Lack of Transportation: No Lack of Food: Never True Current Housing: I Have Housing Concerned About Future Housing: No Difficulty Paying Gas/Electric Bills: No Difficulty Paying for Meds: No Currently Unemployed: No Education: Associate Degree Difficulty w/ Childcare or Family Care: No Living arrangements: with family Additional living arrangements comments: Occupation/Education: occupation 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 Gender identity (if verbalized by the patient): Male Sexual Orientation (if Verbalized by the Patient): Straight or Heterosexual Spiritual care concerns: No Agree to blood products: Yes Exam 2 Narrative: GENERAL: Well-appearing, well-nourished, and in no acute distress. HEAD: Normocephalic, atraumatic. EYES: Non injected, non icteric ENT: Nares clear, no rhinorrhea or epistaxis. NECK: Supple. CHEST: Speaking in full sentences. No respiratory distress. HEART: Regular rate and rhythm. . ABDOMEN: Soft, nondistended. No Tenderness to palpation in quadrants x4. : Yeast infection particularly in inguinal creases. No lymphadenopathy. Femoral pulses intact. Normal male genitalia. No scrotal masses or edema. No penile dischrage. Multiple areas of folliculitis. There are also firm nodules to palpation along mons pubis, possible lipomas versus other deposits. No marked inguinal hernia appreciated while patient supine. EXTREMITIES: Normal range of motion. No lower extremity edema. SKIN: Warm, dry, no rash. NEURO: No focal deficits. Alert and oriented x3. PSYCH: Normal mood and affect. Course Vital Signs Vital signs: Vital Signs Temperature 97.8 F 12/16/24 13:19 Pulse Rate 103 H 12/16/24 13:19 Respiratory Rate 20 12/16/24 13:19 Blood Pressure 162/72 H 12/16/24 13:19 Pulse Oximetry 100 12/16/24 13:19 Oxygen Delivery Room Air 12/16/24 13:19 Temperature 97.8 F 12/16/24 13:19 Pulse Rate 90 12/16/24 17:30 Respiratory Rate 18 12/16/24 17:30 Blood Pressure 138/86 12/16/24 17:30 Pulse Oximetry 96 12/16/24 17:30 Oxygen Delivery Room Air 12/16/24 13:19 MDM - Extremity (Nontraumatic) MDM Narrative Medical decision making narrative: Patient presents with what was initially reported as left hip/groin pain for weeks. Points to left mons pubis where there are areas of folliculitis and other dermatologic nodules/fat deposits but otherwise without abdominal/pelvic tenderness. In the emergency department he is afebrile vital signs notable for mild tachycardia as well as hypertension. Patient is requesting hemoglobin A1c be checked. This lab is ordered. Leukocytosis with a normal lactic acid. Mild Hyperglycemia with an anion gap but no acidosis. Also mild elevation alk-phos. Patient's hemoglobin A1c is greater than 10% indicating poor diabetic control. CT imaging negative in the area where patient was concerned though RUQ US performed given findings on CT. This also shows biliary sludge. Prescribed OTC analgesic medication, encouraged good glycemic control, and given instructions on hygience/bathing/folliculitis care. Differential Diagnosis Differential diagnosis: Likely herpes zoster and other (meralgia paresthetica; foliculitis; hernia (reducible, incarcerated, strangulated); intestinal obstruction; diverticulitis) Lab Data Attestation: I reviewed the patient's lab results. 12/16/24 13:56 12/16/24 13:56 Labs: Lab Results 12/16/24 12/16/24 12/16/24 Range/Units 13:55 13:56 14:01 WBC 12.0 H (4.5-10.0) K/mm3 RBC 5.14 (4.6-6.20) M/mm3 Hgb 15.5 (14.0-18.0) g/dL Hct 45.1 (42.0-52.0) % MCV 87.7 (80-100) fl MCH 30.2 (26-34) pg MCHC 34.4 (32-36) g/dl RDW 13.0 (11.5-14.5) % Plt Count 213 (150-375) k/mm3 MPV 9.7 (7.4-10.4) fl Immature Gran % (Auto) 0.3 (0-0.5) % Neut % (Auto) 67.9 (45.5-73.1) % Lymph % (Auto) 25.0 (18.3-44.2) % [place] % (Auto) 5.9 (2.6-8.5) % Eos % (Auto) 0.6 (0-4.4) % Baso % (Auto) 0.3 (0.2-1.2) % Lymph # (Auto) 2.99 (0.9-3.2) K/mm3 [place] # (Auto) 0.7 H (0.1-0.6) K/mm3 Eos # (Auto) 0.1 (0-0.3) K/mm3 Baso # (Auto) 0.0 (0.0-0.1) K/mm3 Abs Immat Gran (auto) 0.04 H (0.00-0.031) K/mm3 Absolute Neuts (auto) 8.1 H (1.3-6.7) K/mm3 Absolute Nucleated RBC 0.000 (0.0-0.012) K/mm3 Nucleated RBC % 0.0 (0.0-0.2) % Sodium 139 (137-145) mmol/L Potassium 4.2 (3.4-5.0) mmol/L Chloride 101 (98-107) mmol/L Carbon Dioxide 23 (22-30) mmol/L Anion Gap 15 H (4-12) mmol/L BUN 16 (9-20) mg/dL Creatinine 0.57 L (0.7-1.3) mg/dL Estim Creat Clear Calc 122 ml/min Estimated GFR > 60 (59 - ) Glucose 183 H (65-110) mg/dL Hemoglobin A1c 10.5 H (<5.7) % Lactic Acid 1.3 (0.7-2.0) mmol/L Calcium 10.1 (8.4-10.2) mg/dL Total Bilirubin 0.4 (0.2-1.3) mg/dL AST 24 (17-59) U/L ALT 24 (6-50) U/L Alkaline Phosphatase 130 H (38-126) U/L Total Protein 8.0 (6.3-8.2) g/dL Albumin 4.7 (3.5-5.1) g/dL Urine Color Yellow (Yellow) Urine Appearance Clear (Clear) Urine pH 5.5 (5.0-9.0) Ur Specific [place] 1.021 (1.001-1.035) Urine Protein Negative (Negative) mg/dL Urine Glucose (UA) 3+ H (Negative) mg/dL Urine Ketones 1+ H (Negative) mg/dL Ur Blood (Man) Negative (Negative) Urine Nitrate Negative (Negative) Urine Bilirubin Negative (Negative) Urine Urobilinogen 0.2 (<2.0) mg/dL Leukocyte Esterase Rfl Negative (Negative) PEDRO/UL Imaging Data Radiologist's impression: Impressions Abdomen/Pelvis CT 12/16/24 15:55 IMPRESSION: 1. No evidence of appendicitis, diverticulitis or intestinal obstruction. 2. Sludge or tiny stones in the gallbladder. Ultrasound evaluation advised. Abdomen Ultrasound 12/16/24 17:30 IMPRESSION: Gallbladder sludge. Otherwise, normal limited abdominal ultrasound. Discharge Plan Discharge Clinical Impression: Leukocytosis, Glucosuria, Hemoglobin A1C greater than 9%, indicating poor diabetic control, Folliculitis, Sludge in gallbladder Patient Disposition: Home Condition: Stable Instructions: Antibiotic Form, Leukocytosis (ED), Folliculitis (ED), Diabetic Hyperglycemia (ED), Diabetes and Nutrition (ED) Additional Instructions: The cause of your symptoms remains unclear. It is possible you have a hernia that is sliding in and out (reducible), just not evident on imaging due to laying flat. For the bumps in your groin related to ingrown hairs (follitulits): Can use Antibacterial soaps and practice good hygiene Apply Warm compresses Good glycemic control can also help (i.e. taking your diabetic medications as prescribed) Your Hemoglobin A1C was elevated, >10% indicating that on an average day your blood sugar is likely >250mg/dL. Acetaminophen/Tylenol (maximum 4000 mg per day) is safe to take with NSAIDs (ibuprofen/Motrin) for pain relief. Follow-up with primary care physician. If you do not have 1 the name of the doctors listed below. Return to the emergency department any new, worsening, unmanaged symptoms. Patient Language: Trinidadian Prescriptions: New ibuprofen 600 mg tablet 600 mg PO TID PRN (Reason: pain) Qty: 30 0RF acetaminophen 500 mg capsule 1,000 mg PO Q6H PRN (Reason: pain) Qty: 30 0RF No Action buspirone 10 mg tablet 10 mg PO BID metformin 500 mg tablet extended release 24 hr 1,000 mg PO BID Qty: 120 2RF sildenafil [Viagra] 25 mg tablet 25 mg PO DAILY PRN (Reason: sexual activity) Qty: 30 0RF Rx Instructions: administer 30 minutes to 4 hours before activity atorvastatin 80 mg tablet 80 mg PO DAILY Lantus Solostar U-100 Insulin auto-injector 30 unit subcut DAILY Rx Instructions: Takes in PM 10-15min before HS Novolog Flexpen U-100 Insulin auto-injector 32 unit subcut BID Rx Instructions: BID (Breakfast and Dinner) cefuroxime axetil 500 mg tablet 500 mg PO BID Qty: 20 0RF naproxen [Naprosyn] 500 mg tablet 500 mg PO BID PRN (Reason: pain) Qty: 20 0RF furosemide 20 mg tablet See Rx Instructions .ROUTE .COMPLEX Qty: 90 0RF Dose Instruction: TAKE 1 TABLET BY MOUTH EVERY MORNING Rx Instructions: TAKE 1 TABLET BY MOUTH EVERY MORNING omega 1-nav-yoq-fish oil [Fish Oil] 300-1,000 mg capsule 1 cap PO BID Qty: 180 2RF metoprolol tartrate 100 mg tablet 50 mg PO BID Qty: 180 0RF Rx Instructions: Take one tablet in the morning and 1/2 tablet in evening. losartan 100 mg tablet See Rx Instructions .ROUTE .COMPLEX Qty: 90 2RF Dose Instruction: TAKE 1 TABLET BY MOUTH DAILY Rx Instructions: TAKE 1 TABLET BY MOUTH DAILY Follow-up/Referrals: PHYSICIAN NOT ON STAFF,NONSTAFF [Primary Care Provider] - Bennie Robin MD [Physician] - Stand Alone Forms: Work/School Release IP Time of Disposition: 17:42
--- OUTSIDE RECORDS SUMMARY | 2024-12-16 13:40 | XMS_ITS | Clinical Summary ---
Author Organization [facility] Address [address] [place] [address] Phone Care Team Providers Care General Internist Name Role Phone Ga Tanner MD Primary Care Provider [phone] Allergies No known active allergies Medications Aspirin [...] on file Legal Sex Male 6:29 PM BEAUTY CONSULTANT Gender Identity Not on file Sexual Orientation Not on file Last Filed Vital Signs Vital Sign Reading Time Taken Comments Blood Pressure 149/83 09/10/2023 12:00 AM BEAUTY CONSULTANT Pulse 91 09/10/2023 12:15 AM BEAUTY CONSULTANT Temperature 35.8 C (96.5 F) 09/09/2023 11:53 PM BEAUTY CONSULTANT Respiratory Rate 18 09/09/2023 11:53 PM BEAUTY CONSULTANT Oxygen Saturation 97% 09/10/2023 12:15 AM BEAUTY CONSULTANT Inhaled Oxygen Concentration - - Weight 99.8 kg (220 lb) 09/09/2023 11:53 PM BEAUTY CONSULTANT Height 165.1 cm (5' 5 ) 09/09/2023 11:53 PM BEAUTY CONSULTANT Body Mass Index 36.61 09/09/2023 11:53 PM BEAUTY CONSULTANT Plan of Treatment Health Maintenance Due Date [...] patient's age to complete this topic Insurance [facility] Care Teams General Internist Relationship Specialty Start Date End Date Ga Tanner MD [address] [address] PCP - General Family Medicine 09/02/15
--- OUTSIDE RECORDS SUMMARY | 2024-12-16 13:40 | XMS_ITS | Clinical Summary ---
Author Organization [facility] [address] Address [address] [place] [address] Care Team Providers Care Health And Safety Coordinator Name Role Phone Ga Tanner MD Primary Care Provider [phone] Allergies No known active allergies Medications aspirin 81 mg enteric coated tablet Take 81 mg by mouth daily Active atorvastatin (LIPITOR) 80 mg tablet TAKE ONE TABLET BY MOUTH EVERY EVENING FOR CHOLESTEROL. REPORT ANY UNEXPLAINED MUSCLE PAIN/WEAKNESS TO PROVIDER. 0 Active busPIRone (BUSPAR) 15 mg tablet Take 15 mg by mouth 3 (three) times a day as needed Active Jardiance 25 mg tablet 2 Active ezetimibe (ZETIA) 10 mg tablet 2 Active hydrOXYzine (ATARAX) 50 mg tablet Take 50 mg by mouth nightly 2 Active furosemide (LASIX) 20 mg tablet Take 20 mg by mouth daily Active fenofibrate (TRIGLIDE) 160 mg tablet Take 160 mg by mouth daily Active GARLIC ORAL Take 1 Dose by mouth 1 teaspoon raw garlic daily Active amLODIPine (NORVASC) 5 mg tablet Take 1 tablet (5 mg total) by mouth daily 30 tablet 1 2 Active carvediloL (COREG) 25 mg tablet Take 1 tablet (25 mg total) by mouth 2 (two) times a day with meals 60 tablet 1 2 Active insulin glargine 100 unit/mL (3 mL) pen for injection Inject 40 Units under the skin every morning 15 mL 1 2 Active insulin aspart (NovoLOG) 100 unit/mL (3 mL) pen for injection Inject 20 Units under the skin 3 (three) times a day with meals (plus 2 units for every 50 greater than 150 up to max 10 units.) 18 mL 2 Active pen needle, diabetic (Pen Needle) 32 gauge x 5/32 needle Use as directed once a day. 100 each 1 2 Active pen needle, diabetic 32 gauge x 5/32 needle Use as directed 3 times a day 100 each 1 2 Active Active Problems Problem Noted Date Diagnosed Date Aftercare following surgery of the circulatory s ystem 07/29/2022 Status post coronary artery bypass grafting 07/08 CAD in [place] artery 07/03/2022 Coronary artery disease invo lving [place] coronary artery of [place] heart with unstable angina pectoris 06/24/2022 Immunizations Immunization Administration Dates Next Due Moderna SARS-CoV-2 Monovalent Vaccination (12+ Y RS) 10/09/2020 Surgical History Surgery Date Site/Laterality Comments CARDIAC STENT PLACEMENT 02/13/2009 LAPAROSCOPIC GASTRIC BANDING 09/06/2011 - 09/05/2012 removed 2014 CORONARY ARTERY BYPASS GRAFT 07/03/2022 CABGx3 Medical History Medical History Date Comments Myocardial infarction (HCC) Coronary artery disease Sleep apnea with use of continuous positive airw ay pressure (CPAP) Hypertension Diabetes mellitus (HCC) Hyperlipidemia Depression Anxiety PTSD (post-traumatic stress disorder) Family History Medical History Relation Name Comments Coronary artery disease Father Relation Name Status Comments Father Social History Tobacco Use Types Packs/Day Years Used Date Smoking Tobacco: Former Cigarettes Tobacco Cessation:Counseling Given: Not Answered Social Connection and Isolat ion Panel [NHANES] Answer Date Recorded In a typical week, how many times do you talk on the phone with family, friends, or neighbors? More than three times a week 07/06/2022 How often do you get togethe r with friends or relatives? More than three times a week 07/06/2022 How often do you attend [facility] or oriental orthodox services? 1 to 4 times per year 07/06/2022 Do you belong to any clubs o r organizations such as restorationism groups, unions, fraternal or athletic groups, or school groups? Yes 07/06/2022 How often do you attend meet ings of the clubs or organizations you belong to? 1 to 4 times per year 07/06/2022 Are you , , di vorced, , never , or living with a partner? 07/06/2022 AUDIT-C Answer Date Recorded Q1: How often do you have a drink containing alc ohol? 2-4 times a month 07/03/2022 Q2: How many drinks containi ng alcohol do you have on a typical day when you are drinking? 5 or 6 07/03/2022 Q3: How often do you have si x or more drinks on one occasion? Weekly 07/03/2022 Overall Financial Resource Strain (CARDIA) Answe r Date Recorded How hard is it for you to pa y for the very basics like food, housing, medical care, and heating? Not very hard 07/06/2022 Hunger Vital Sign Answer Date Recorded Within the past 12 months, y ou worried that your food would run out before you got the money to buy more. Never true 07/06/20 22 Within the past 12 months, t he food you bought just didn't last and you didn't have money to get more. Never true 07/06/2022 PRAPARE - Transportation Answer Date Re corded In the past 12 months, has l ack of transportation kept you from medical appointments or from getting medications? No 06/08 In the past 12 months, has l ack of transportation kept you from meetings, work, or from getting things needed for daily living? 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 Gender Identity Not on file Sexual Orientation Not on file Obstetrics History Last Filed Vital Signs Vital Sign Reading Time Taken Comments Blood Pressure 128/65 08/06/2022 9:33 AM LUBE TECHNICIAN Pulse 75 08/06/2022 9:33 AM LUBE TECHNICIAN Temperature 36.3 C (97.4 F) 08/06/2022 9:33 AM LUBE TECHNICIAN Respiratory Rate 20 08/06/2022 9:33 AM LUBE TECHNICIAN Oxygen Saturation 97% 08/06/2022 9:33 AM LUBE TECHNICIAN Inhaled Oxygen Concentration - - Weight 108.9 kg (240 lb) 07/29/2022 9:43 AM LUBE TECHNICIAN Height 165.1 cm (5' 5 ) 07/29/2022 9:43 AM LUBE TECHNICIAN Body Mass Index 39.94 07/29/2022 9:43 AM LUBE TECHNICIAN Plan of Treatment Health Maintenance Due Date Last Done Comments Colon Cancer Screening-Colonoscopy 1965 Depression Screening 1965 Hepatitis C Screening 1965 Prostate Cancer Screening-PSA 1965 DTaP/Tdap/Td Vaccine (1 - Tdap) 1976 Hepatitis B Screening 1983 Regular Well Visit/Exam 18-64 1983 Zoster Vaccine (1 of 2) 2015 Covid-19 Vaccine (2 - 2023-2 5 season) 2024 10/09/2020 Influenza Vaccine (#1) 2024 Pneumococcal vaccine <65 Aged Out No longer eligible based on patient's age to complete this topic Insurance [facility] HMO/PPO Address: [facility] [address] [place] [address] [facility] [id number] [facility] HMO/PPO Address: [address] [address] [place] [address] [facility] [id number] [facility] CHOICE PLUS [facility] HMO/PPO Address: [place] [address] CHOICE PLUS [facility] HMO/PPO Address: [address] [address] [facility] [address] Advance Directives For more information, please contact: [phone] * Full Code (Latest Code Status on File) Date Activated Date Inactivated Comments 07/03/2022 5:52 PM 07/07/2022 9:54 PM Care Teams Health And Safety Coordinator Relationship Specialty Start Date End Date Ga Tanner MD PCP - General Family Medicine 05/27/22
--- OUTSIDE RECORDS SUMMARY | 2024-12-16 13:40 | XMS_ITS | Referral Summary ---
Author Organization [facility] [address] Address [address] [place] [address] Care Team Providers Care Manufacturing Recruiter Name Role Phone Ga Tanner MD Primary Care Provider [phone] Allergies No known active allergies Medications aspirin [...] coronary artery bypass grafting 07/08 CAD in [place] artery 07/03/2022 Coronary artery disease invo lving [place] coronary artery of [place] heart with unstable angina pectoris 06/24/2022 Immunizations Immunization Administration Dates Next Due Moderna SARS-CoV-2 Monovalent Vaccination (12+ Y RS) 10/09/2020 Social History Tobacco Use Types Packs/Day Years [...] week 07/06/2022 How often do you attend chur or spiritism services? 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 SIGN WORKER Gender Identity Not on file Sexual Orientation Not on file Last Filed Vital Signs Vital Sign Reading Time Taken Comments Blood Pressure 128/65 08/06/2022 9:33 AM NEON SIGN WORKER Pulse 75 08/06/2022 9:33 AM NEON SIGN WORKER Temperature 36.3 C (97.4 F) 08/06/2022 9:33 AM NEON SIGN WORKER Respiratory Rate 20 08/06/2022 9:33 AM NEON SIGN WORKER Oxygen Saturation 97% 08/06/2022 9:33 AM NEON SIGN WORKER Inhaled Oxygen Concentration - - Weight 108.9 kg (240 lb) 07/29/2022 9:43 AM NEON SIGN WORKER Height 165.1 cm (5' 5 ) 07/29/2022 9:43 AM NEON SIGN WORKER Body Mass Index 39.94 07/29/2022 9:43 AM NEON SIGN WORKER Plan of Treatment Not on file Insurance [facility] CHO[facility] [id number] [facility] CHOICE [facility] [id number] Member Subscriber Plan / Payer (Ef fective 2021-Present) Name:Roland Vergara Member ID:[id number] Relation to Subscriber:Self Name:GabrieldonnaRoland wade Subscriber ID:[id number] Payer ID:[id number] Type:[employer] HMO/PPO Address: [place] [id number]ICE [address] [place] [address] Advance Directives For more information, please contact: [phone] * Full Code (Latest Code Status on File) Date Activated Date Inactivated Comments 07/03/2022 5:52 PM 07/07/2022 9:54 PM Care Teams Manufacturing Recruiter Relationship Specialty Start Date End Date Ga Tanner MD PCP - General Family Medicine 05/27/22
--- OUTSIDE RECORDS SUMMARY | 2024-12-16 13:40 | XMS_ITS | Clinical Summary ---
Author Organization [facility] Address [address] [place] [address] Care Team Providers Care Range Rider Name Role Phone Unavailable Primary Care Provider Unavailabl e Source Comments [facility],non-owned Affiliates and Associated Physician Practices is amultiple site organization consisting of ambulatory clinics and hospital sitesin [place], [place], [place] and [place]. This disclosure is being madepursuant to the Care Everywhere program and may not contain all information available regarding this patient. Last updated 18.[employer]ell[employer] Allergies No known active allergies Medications * [...] on file Legal Sex Male 11:50 AM JURY CONSULTANT Gender Identity Not on file Sexual [...] Agency Comment Lab Testing performed at: [facility] [address] [facility] [id number] us Wiliam Barbosa MD LAB - CHEMISTRY ORDERABLES F inal Result [facility] ACCOUNT BILL [address] [place] [address] * (ABNORMAL) COMPREHENSIVE METABOLIC PANEL (03/05/2012 11:00 AM CDT) Glucose 230(H) 75 - 110 mg/dl [facility] BUN 7 7 - 21 mg/dl [facility] Creatinine 0.77 0.50 - 1.30 mg/dl [facility] Sodium 138 136 - 145 mmol/L [facility] Potassium 3.8 3.5 - 5.1 mmol/L [facility] Chloride 102 98 - 107 mmol/L [facility] CO2 25 22 - 30 mmol/L [facility] Calcium 8.7 8.5 - 10.1 mg/dl [facility] Bilirubin Total 0.4 0.2 - 1.0 mg/dl [facility] Alkaline Phosphatase 74 38 - 126 U/L [facility] AST 12 5 - 40 U/L [facility] ALT 35 12 - 78 U/L [facility] Protein Total 7.8 6.4 - 8.2 gm/dl [facility] Albumin 3.9 3.4 - 5.0 gm/dl [facility] eGFR By MDRD >60 >60 [facility] Blood specimen (specimen) BLOOD SPECIMEN / Unknown 03/05/2012 11:00 AM CDT 03/05/2012 11:55 AM CDT Walter Alcazar MD LAB - CHEMISTRY ORDERABLES F inal Result [facility] [address] [place] [address] from Last 3 Months or Most Recently Relevant to Health Maintenance Insurance [facility] Advance Directives Documents on File Type Date Recorded 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
[2024-12-16] MEDS: MORPHINE SULFATE (*CRX) 4 MG/ML INJ IV PUSH (14:03)
[2024-12-16 14:17] LABS: Add Urine Microscopic? NO; Appearance Urine Clear (Clear); Bilirubin Urine Negative (Negative); Blood Urine Negative (Negative); Color Urine Yellow (Yellow); Glucose Urine UA 3+ mg/dL (Negative); Ketones Urine 1+ mg/dL (Negative); Leukocyte Esterase Ur Negative LEU/UL (Negative); Nitrate Urine Negative (Negative); Protein Urine Negative (Negative); Specific Grav Ur 1.021 (1.001-1.035); Urobilinogen Urine 0.2 mg/dL (<2.0); pH Urine 5.5 (5.0-9.0)
[2024-12-16 14:17] LABS: Basophils Percent Auto 0.3 % (0.2-1.2); Eosinophils Absolute Auto 0.1 K/mm3 (0-0.3); Eosinophils Percent Auto 0.6 % (0-4.4); Hematocrit 45.1 % (42.0-52.0); Hemoglobin 15.5 g/dL (14.0-18.0); Immature Granulocyte Absolute 0.04 K/mm3 (0.00-0.031); Immature Granulocyte Percent A 0.3 % (0-0.5); Lymphocytes Absolute Auto 2.99 K/mm3 (0.9-3.2); Mean Corpuscular HGB Conc 34.4 g/dl (32-36); Mean Corpuscular Hemoglobin 30.2 pg (26-34); Mean Corpuscular Volume 87.7 fl (80-100); Mean Platelet Volume 9.7 fl (7.4-10.4); Monocytes Absolute Auto 0.7 K/mm3 (0.1-0.6); Monocytes Percent Auto 5.9 % (2.6-8.5); Neutrophils Absolute Auto 8.1 K/mm3 (1.3-6.7); Neutrophils Percent Auto 67.9 % (45.5-73.1); Platelet Count Result 213 k/mm3 (150-375); Red Blood Count 5.14 M/mm3 (4.6-6.20)
[2024-12-16 14:32] LABS: Lactic Acid Reflex 1.3 mmol/L (0.7-2.0)
[2024-12-16 14:45] LABS: Alanine Aminotransferase 24 U/L (6-50); Albumin Level 4.7 g/dL (3.5-5.1); Alkaline Phosphatase 130 U/L (38-126); Anion Gap 15 mmol/L (4-12); Aspartate Amino Transferase 24 U/L (17-59); Bilirubin,Total 0.4 mg/dL (0.2-1.3); Blood Urea Nitrogen 16 mg/dL (9-20); Calcium 10.1 mg/dL (8.4-10.2); Carbon Dioxide 23 mmol/L (22-30); Chloride 101 mmol/L (98-107); Estimated CRCL calculation 122 ml/min; Estimated Glomerular Filt Rate > 60; Glucose 183 mg/dL (65-110); Potassium 4.2 mmol/L (3.4-5.0); Sodium 139 mmol/L (137-145)
[2024-12-16 15:25] LABS: Hemoglobin A1C 10.5 % (<5.7)
[2024-12-16 17:30] VITALS: BP 138/86; PULSE 90; RESP 18; O2SAT 96
== END 2024-12-16 17:59 | disposition home or self-care (01) ==
PROVIDERS: Emergency Provider Student in an Organized Health Care Education/Training Program
DX: L73.9 Follicular disorder, unspecified (principal); E11.65 Type 2 diabetes mellitus with hyperglycemia; D72.829 Elevated white blood cell count, unspecified; R93.2 Abnormal findings on diagnostic imaging of liver and biliary tract; I25.2 Old myocardial infarction; I25.10 Atherosclerotic heart disease of native coronary artery without angina pectoris; I10 Essential (primary) hypertension; E66.01 Morbid (severe) obesity due to excess calories; Z68.33 Body mass index [BMI] 33.0-33.9, adult; E78.5 Hyperlipidemia, unspecified; G47.33 Obstructive sleep apnea (adult) (pediatric); Z95.5 Presence of coronary angioplasty implant and graft; Z87.891 Personal history of nicotine dependence; Z79.84 Long term (current) use of oral hypoglycemic drugs; Z79.899 Other long term (current) drug therapy; Z79.4 Long term (current) use of insulin
CPT/HCPCS: 36415; 74177; 76705; 80053; 81003; 83036; 83605; 85025; 96374; 99284; J2270; Q9967